=== PATIENT | female | born 1970 | race Caucasian/White ===

== ENCOUNTER → 2019-08-11 | Outpatient (CLI) | payer BC ==
--- NOTE | 2019-08-11 13:08 | XR ---
EXAMINATION TYPE: XR knee limited RT DATE OF EXAM: 08/11/2019 CLINICAL HISTORY: Increasing right knee pain. TECHNIQUE: Frontal and lateral views of the right knee are obtained. COMPARISON: None. FINDINGS: There is no acute fracture/dislocation evident in right knee. Severe patellofemoral compar tment narrowing and spurring. Moderate medial and lateral tibiofemoral compartment narrowing with mod erate to severe spurring. The overlying soft tissue appears unremarkable. IMPRESSION: As above. Findings quite pronounced for patient's chronologic age. Consider orthopedic re ferral.
== END | disposition home or self-care (01) ==
LOC: RADXRYALE 12:53
PROVIDERS: ATTEND Nurse Practitioner Family
DX: M25.861 Other specified joint disorders, right knee (principal); M76.891 Other specified enthesopathies of right lower limb, excluding foot

== ENCOUNTER 2021-09-24 06:39 | Inpatient (IN) | payer BC ==
--- NOTE | 2021-09-24 07:11 | ED ---
General Adult HPI - General Chief complaint: Shortness of Breath Stated complaint: JOCELINE Time Seen by Provider: 09/24/21 07:11 Source: patient, RN notes reviewed, old records reviewed Mode of arrival: EMS Limitations: no limitations - History of Present Illness Initial comments: Patient is a 51-year-old female with no significant past medical history he t akes no medications at home presents emergency Department with a 2 week history of progressively worsening shortness of breath. States it is worse with exertion. Nose last night that it also is associated with lying down. Denies any PND. Endorses chronic lower extremity edema. No worsening edema. States when the shortness of breath is bad she feels a pressure sensation over her chest. No current chest pain. Denies nausea, vomiting, abdominal pain. Denies any lightheadedness. Denies any blurry vision. Denies any fevers, chills, sick contacts, cough. Denies any family medical history of blood clots. Denies any recent long distance travel. Former smoker, no history of COPD or asthma. No other acute complaints at this time. Presents for further evaluation for shortness of breath. - Related Data Home Medications Medication Instructions Recorded Confirmed Acetaminophen [Tylenol Arthritis] 650 mg PO Q8H PRN 09/24/21 09/24/21 Diclofenac Sodium [Voltaren] 75 mg PO BID PRN 09/24/21 09/24/21 Ibuprofen [Motrin] 800 mg PO Q8H PRN 09/24/21 09/24/21 Allergies Allergy/AdvReac Type Severity Reaction Status Date / Time No Known Allergies Allergy Verified 09/24/21 10:29 Review of Systems ROS Statement: Those systems with pertinent positive or pertinent negative responses have been documented in the HPI. Review of Systems: CONST: Denies fever EYES: Denies blurry vision ENT: Denies nasal congestion C/V: Denies Chest pain RESP: Endorses exertional shortness of breath GI: Denies abdominal pain : Denies dysuria SKIN: Denies rash. MSK: Denies joint pain. NEURO: Denies headache ROS Other: All systems not noted in ROS Statement are negative. Past Medical History Past Medical History: No Reported History History of Any Multi-Drug Resistant Organisms: None Reported Additional Past Surgical History / Comment(s): D&C Past Psychological History: No Psychological Hx Reported Smoking Status: Former smoker Past Alcohol Use History: Occasional Past Drug Use History: None Reported - Past Family History Mother Family Medical History: No Reported History Additional Family Medical History / Comment(s): Mother is healthy Father Family Medical History: Hyperlipidemia, Hypertension General Exam - General Exam Comments Initial Comments: General: Appears in no acute distress. Obese. HEAD: Normal with no signs of head trauma. EYES: PERRLA, EOMI, conjunctiva normal, no discharge. ENT: Hearing grossly intact, normal oropharynx. RESPIRATORY: Clear breath sounds bilaterally. No wheezes, rales, or rhonchi. Mild hypoxia at rest, ranging anywhere from 93-97%. No increased work of breathing. C/V: Regular rate and rhythm.. S1 and S2 auscultated. Nonpitting peripheral edema in the lower extremities that is symmetrical. Peripheral pulses 2+ and intact throughout. ABD: Abd is soft, nontender, nondistended EXT: Normal range of motion, no obvious deformity SKIN: No rashes or lesions observed on exposed skin. NEURO: Alert and oriented 4. Limitations: no limitations Course Vital Signs 09/24/21 09/24/21 09/24/21 06:45 07:52 08:00 Temperature 98.1 F Pulse Rate 102 H 96 Respiratory 22 22 22 Rate Blood Pressure 134/83 129/93 O2 Sat by Pulse 94 L 95 Oximetry 09/24/21 11:05 Temperature Pulse Rate 98 Respiratory 20 Rate Blood Pressure 117/91 O2 Sat by Pulse 94 L Oximetry Medical Decision Making - Medical Decision Making Based on the patient's presentation and physical exam, and concern for cardiopulmonary etiology for her current symptoms. Cannot rule out infectious. We'll obtain fluent Covid spots in addition to cardiac workup, as well as d-d sierra for PE. Chest x-ray and screening EKG will also be obtained. Baseline vital signs are relatively within normal limits. We will walk the patient and evaluate the pulse ox following walking. Patient was in agreement this plan. Ambulatory pulse ox shows and the patient gets as low as 87% with activity. At rest, patient remains in the mid 90%'s. EKG shows no signs of acute ischemia. Laboratory studies are remarkable for an elevated d-dimer of 7.71. Mildly elevated LFTs and alk phos. Troponin is elevated slightly to 0.066. BNP is elevated to 3000. Covid and flu are negative. Chest x-ray shows no acute cardiopulmonary process. I discussed the findings with the patient. Vital signs remained stable and wnl at rest at this time. Recommended we obtain a CT to evaluate for pulmonary embolism. She was in agreement this plan. PE revealed bilateral PEs and findings possible for right ventricular strain and pulmonary artery hypertension. Patient was given an aspirin for her elevated troponin. I updated the patient. She started on a high intensity heparin drip. This week, EKOS coverage for PE is vascular, and therefore I spoke with Dr. Cox who was in agreement with the plan. Will evaluate the patient for EKOS. I also consulted cardiology due to the elevated troponin and BNP. We'll continue to trend troponins. I spoke with the admitting team, Dr. Castro who accepted the patient was in agreement this plan. Echo was ordered stat to evaluate for right heart strain. We will also obtain ultrasounds of bilateral lower extremities to evaluate for DVT. Patient will be admitted to telemetry bed to cardiac stepdown. The patient was in agreement this plan. - Lab Data Result diagrams: 09/24/21 13:14 09/24/21 13:14 Lab Results 09/24/21 09/24/21 09/24/21 Range/Units 07:32 07:32 07:32 WBC 9.9 (3.8-10.6) k/uL RBC 4.94 (3.80-5.40) m/uL Hgb 14.7 (11.4-16.0) gm/dL Hct 46.0 (34.0-46.0) % MCV 93.3 (80.0-100.0) fL MCH 29.9 (25.0-35.0) pg MCHC 32.0 (31.0-37.0) g/dL RDW 13.4 (11.5-15.5) % Plt Count 194 (150-450) k/uL MPV 10.6 Neutrophils % 69 % Lymphocytes % 23 % Monocytes % 5 % Eosinophils % 1 % Basophils % 1 % Neutrophils # 6.8 (1.3-7.7) k/uL Lymphocytes # 2.2 (1.0-4.8) k/uL Monocytes # 0.5 (0-1.0) k/uL Eosinophils # 0.1 (0-0.7) k/uL Basophils # 0.1 (0-0.2) k/uL PT 11.0 (9.0-12.0) sec INR 1.0 (<1.2) APTT 23.8 (22.0-30.0) sec D-Dimer 7.71 H (<0.60) mg/L FEU Sodium 139 (137-145) mmol/L Potassium 4.5 (3.5-5.1) mmol/L Chloride 108 H (98-107) mmol/L Carbon Dioxide 20 L (22-30) mmol/L Anion Gap 11 mmol/L BUN 19 H (7-17) mg/dL Creatinine 0.76 (0.52-1.04) mg/dL Est GFR (CKD-EPI)AfAm >90 (>60 ml/min/1.73 sqM) Est GFR (CKD-EPI)NonAf >90 (>60 ml/min/1.73 sqM) Glucose 154 H (74-99) mg/dL Calcium 9.2 (8.4-10.2) mg/dL Magnesium 1.9 (1.6-2.3) mg/dL Total Bilirubin 0.4 (0.2-1.3) mg/dL AST 100 H (14-36) U/L ALT 80 H (4-34) U/L Alkaline Phosphatase 185 H (38-126) U/L Troponin I (0.000-0.034) ng/mL NT-Pro-B Natriuret Pep pg/mL Total Protein 7.4 (6.3-8.2) g/dL Albumin 4.1 (3.5-5.0) g/dL HCG, Qual Not Detected Coronavirus (PCR) (Not Detectd) Influenza Type A RNA (Not Detectd) Influenza Type B (PCR) (Not Detectd) 09/24/21 09/24/21 09/24/21 Range/Units 07:32 07:32 07:32 WBC (3.8-10.6) k/uL RBC (3.80-5.40) m/uL Hgb (11.4-16.0) gm/dL Hct (34.0-46.0) % MCV (80.0-100.0) fL MCH (25.0-35.0) pg MCHC (31.0-37.0) g/dL RDW (11.5-15.5) % Plt Count (150-450) k/uL MPV Neutrophils % % Lymphocytes % % Monocytes % % Eosinophils % % Basophils % % Neutrophils # (1.3-7.7) k/uL Lymphocytes # (1.0-4.8) k/uL Monocytes # (0-1.0) k/uL Eosinophils # (0-0.7) k/uL Basophils # (0-0.2) k/uL PT (9.0-12.0) sec INR (<1.2) APTT (22.0-30.0) sec D-Dimer (<0.60) mg/L FEU Sodium (137-145) mmol/L Potassium (3.5-5.1) mmol/L Chloride (98-107) mmol/L Carbon Dioxide (22-30) mmol/L Anion Gap mmol/L BUN (7-17) mg/dL Creatinine (0.52-1.04) mg/dL Est GFR (CKD-EPI)AfAm (>60 ml/min/1.73 sqM) Est GFR (CKD-EPI)NonAf (>60 ml/min/1.73 sqM) Glucose (74-99) mg/dL Calcium (8.4-10.2) mg/dL Magnesium (1.6-2.3) mg/dL Total Bilirubin (0.2-1.3) mg/dL AST (14-36) U/L ALT (4-34) U/L Alkaline Phosphatase (38-126) U/L Troponin I 0.066 H* (0.000-0.034) ng/mL NT-Pro-B Natriuret Pep 3040 pg/mL Total Protein (6.3-8.2) g/dL Albumin (3.5-5.0) g/dL HCG, Qual Coronavirus (PCR) (Not Detectd) Influenza Type A RNA Not Detected (Not Detectd) Influenza Type B (PCR) Not Detected (Not Detectd) 09/24/21 Range/Units 07:32 WBC (3.8-10.6) k/uL RBC (3.80-5.40) m/uL Hgb (11.4-16.0) gm/dL Hct (34.0-46.0) % MCV (80.0-100.0) fL MCH (25.0-35.0) pg MCHC (31.0-37.0) g/dL RDW (11.5-15.5) % Plt Count (150-450) k/uL MPV Neutrophils % % Lymphocytes % % Monocytes % % Eosinophils % % Basophils % % Neutrophils # (1.3-7.7) k/uL Lymphocytes # (1.0-4.8) k/uL Monocytes # (0-1.0) k/uL Eosinophils # (0-0.7) k/uL Basophils # (0-0.2) k/uL PT (9.0-12.0) sec INR (<1.2) APTT (22.0-30.0) sec D-Dimer (<0.60) mg/L FEU Sodium (137-145) mmol/L Potassium (3.5-5.1) mmol/L Chloride (98-107) mmol/L Carbon Dioxide (22-30) mmol/L Anion Gap mmol/L BUN (7-17) mg/dL Creatinine (0.52-1.04) mg/dL Est GFR (CKD-EPI)AfAm (>60 ml/min/1.73 sqM) Est GFR (CKD-EPI)NonAf (>60 ml/min/1.73 sqM) Glucose (74-99) mg/dL Calcium (8.4-10.2) mg/dL Magnesium (1.6-2.3) mg/dL Total Bilirubin (0.2-1.3) mg/dL AST (14-36) U/L ALT (4-34) U/L Alkaline Phosphatase (38-126) U/L Troponin I (0.000-0.034) ng/mL NT-Pro-B Natriuret Pep pg/mL Total Protein (6.3-8.2) g/dL Albumin (3.5-5.0) g/dL HCG, Qual Coronavirus (PCR) Not Detected (Not Detectd) Influenza Type A RNA (Not Detectd) Influenza Type B (PCR) (Not Detectd) - EKG Data -: EKG Interpreted by Me EKG Comments: 12-lead Electrocardiogram Interpretation Note EKG was reviewed and interpreted by myself. 12-lead ECG performed at 0654 is interpreted by me as revealing normal sinus rhythm at a rate of 100 beats per minute. [place] is normal. MI interval is 184 ms, QRS duration is 102 ms, QTc is 426 seconds.. There were no ST or T wave abnormalities to suggest myocardial ischemia or injury. R wave progression across the precordium was satisfactory. By my interpretation this EKG is non-diagnostic for acute ischemia. Critical Care Time Critical Care Time: Yes Total Critical Care Time: 35 Critical Care Time: Upon my evaluation, this patient had a high probability of imminent or life- threatening deterioration due to heparin initiation for bilateral PEs, concern for right heart strain, which required my direct attention, intervention, and personal management. I have personally provided 35 minutes of critical care time exclusive of time spent on separately billable procedures. Time includes review of laboratory data, radiology results, discussion with consultants, and monitoring for potential decompensation. Interventions were performed as documented in my note. Disposition Clinical Impression: Bilateral pulmonary embolism, Elevated troponin, Elevated brain natriuretic peptide (BNP) level, Exertional dyspnea Disposition: ADMITTED IP TO THIS HOSP Condition: Serious Time of Disposition: 10:00
[2021-09-24 08:07] LABS: Basophils # (A) 0.1 k/uL (0-0.2); Basophils % (A) 1 %; Eosinophils # (A) 0.1 k/uL (0-0.7); Eosinophils % (A) 1 %; HGB 14.7 gm/dL (11.4-16.0); Lymphocytes # (A) 2.2 k/uL (1.0-4.8); Lymphocytes % (A) 23 %; MCH 29.9 pg (25.0-35.0); MCV 93.3 fL (80.0-100.0); Mean Platelet Volume 10.6; Monocytes # (A) 0.5 k/uL (0-1.0); Monocytes % (A) 5 %; Neutrophils # (A) 6.8 k/uL (1.3-7.7); Neutrophils % (A) 69 %; Platelet Count 194 k/uL (150-450); RBC 4.94 m/uL (3.80-5.40); RDW 13.4 % (11.5-15.5); WBC 9.9 k/uL (3.8-10.6)
--- NOTE | 2021-09-24 08:14 | XR ---
EXAMINATION TYPE: XR chest 2V DATE OF EXAM: 09/24/2021 COMPARISON: NONE HISTORY: Chest pain TECHNIQUE: Frontal and lateral views of the chest are obtained. FINDINGS: There is no focal air space opacity. No evidence for pneumothorax. No pleural effusion. The cardiac silhouette size is within normal limits. The osseous structures are grossly intact. IMPRESSION: 1. No acute cardiopulmonary process.
[2021-09-24 08:20] LABS: HCG,Qualitative Serum Not Detected
[2021-09-24 08:22] LABS: Potassium 4.5 mmol/L (3.5-5.1)
[2021-09-24 08:23] LABS: ALT 80 U/L (4-34); AST 100 U/L (14-36); African American GFR (CKD) >90 (>60 ml/min/1.73 sqM); Albumin 4.1 g/dL (3.5-5.0); Alkaline Phosphatase 185 U/L (38-126); Anion Gap 11 mmol/L; Blood Urea Nitrogen 19 mg/dL (7-17); Calcium 9.2 mg/dL (8.4-10.2); Carbon Dioxide 20 mmol/L (22-30); Chloride 108 mmol/L (98-107); Glucose 154 mg/dL (74-99); Magnesium 1.9 mg/dL (1.6-2.3); Non-African American GFR(CKD) >90 (>60 ml/min/1.73 sqM); Sodium 139 mmol/L (137-145); Total Bilirubin 0.4 mg/dL (0.2-1.3); Total Protein 7.4 g/dL (6.3-8.2)
[2021-09-24 08:25] LABS: Partial Thromboplastin Time 23.8 sec (22.0-30.0)
[2021-09-24] MEDS ORDERED: ASPIRIN 81 MG PO STA (09:33)
[2021-09-24] MEDS ORDERED: HEPARIN SODIUM 1,000 UN/ML (10ML VL) IV ONE (09:37)
[2021-09-24] MEDS ORDERED: HEPARIN SODIUM 1,000 UN/ML (10ML VL) IV PRN (09:37)
--- NOTE | 2021-09-24 09:44 | CT ---
EXAMINATION TYPE: CT chest angio for PE DATE OF EXAM: 09/24/2021 COMPARISON: Chest x-ray 09/24/2021 HISTORY: Elevated d-dimer, difficulty breathing CT DLP: 888.5 mGycm Automated exposure control for dose reduction was used. CONTRAST: CT Chest for pulmonary embolism performed with with IV Contrast, patient injected with 100 mL of Isov ue 370. 3-dimensional reconstructions were performed on an alternate workstation and reviewed. FINDINGS: LUNGS: The lungs are grossly clear, there is no concerning parenchymal mass or nodule identified. T here is no pleural effusion or pneumothorax seen. The tracheobronchial tree is patent. MEDIASTINUM: There is satisfactory enhancement of the pulmonary artery and its branches, there is danni ateral filling defect present in the left and right pulmonary arteries with extension into the segmen aniya branches. There are no greater than 1 cm hilar or mediastinal lymph nodes. No pericardial effu juanita is seen. Pulmonary artery is prominent. AORTA: No additional significant abnormality is seen. OTHER: No definite reflux of contrast into the hepatic veins, suspect there may be some mild right v entricular strain, some slight interventricular septal bowing is suspected, axial image 81. The liver shows low-attenuation suggesting hepatic steatosis. IMPRESSION: Bilateral pulmonary embolus, findings suggestive of some right ventricular strain and pulmonary arter y hypertension. Report relayed to the referring clinician at the time of interpretation of the exam.
[2021-09-24] MEDS ORDERED: HEPARIN SOD,PORK IN 0.45% NACL 25,000 UNIT in 0.45% NACL 1 250ML.BAG IV SCH ×2 (09:45→14:00)
[2021-09-24] MEDS ORDERED: NALOXONE 0.4 MG/ML 1 ML VIAL IV PRN (09:58)
[2021-09-24] MEDS ORDERED: ONDANSETRON 4 MG/2 ML VIAL IVP PRN (09:58)
--- NOTE | 2021-09-24 10:44 | US ---
EXAMINATION TYPE: US venous doppler duplex LE DATE OF EXAM: 09/24/2021 10:29 AM COMPARISON: NONE CLINICAL HISTORY: elevated d-dimer, evaluate for dvt. Elevated d-dimer. CT showed bilat PE SIDE PERFORMED: Bilateral TECHNIQUE: The lower extremity deep venous system is examined utilizing real time linear array sonog catrachita with graded compression, doppler sonography and color-flow sonography. Limited due to pt being morbidly obese VESSELS IMAGED: Common Femoral Vein Deep Femoral Vein Greater Saphenous Vein * Femoral Vein Popliteal Vein Small Saphenous Vein * (* superficial vessels) Right Leg: Could not completely compress mid and distal femoral vein on right leg. There was some co corin flow and Doppler in distal femoral vein. The popliteal vein did not compress, but there was some color flow and Doppler in mid and distal pop vein. Prox popliteal vein did have good color flow. Calf veins not visualized. Left Leg: Negative for DVT. Calf veins not visualized. IMPRESSION: 1. Suspect nonocclusive DVT right lower extremity. 2. Limited visualization of the left-sided calf veins otherwise no left-sided DVT present.
--- NOTE | 2021-09-24 11:02 | P.GSCN ---
History of Present Illness Consult date: 09/24/21 Reason for Consult: Bilateral pulmonary embolism, possible right heart strain Requesting physician: Crescencio Castro History of present illness: This a pleasant 51-year-old female who presented to the emergency department with complaints of shortness of breath. She states she's had shortness of breath that has increased over last 2 weeks duration. She states last night was difficult for her to sleep, she hasn't dyspnea with exertion as well as mild pressure in her chest otherwise denies any chest pain. She denies any nausea, vomiting, fevers or chills. She denies any previous history of DVT or pulmonary embolism. She denies any history of clotting disorder, COVID-19 infection, or family history of blood clots. She is a former smoker, 10 years ago. She does admit to recently traveled to [place] which was a 4-1/[address]. On admission she was noted to have elevated d-dimer and troponins. CT angiogram of the chest was completed showing bilateral pulmonary embolus, findings suggestive of some right ventricular strain and pulmonary artery hypertension. Echocardiogram was ordered and is currently pending. Venous duplex was ordered reporting suspected nonocclusive DVT in the right lower extremity, limited visualization of left-sided calf veins otherwise to left sided DVT present. Patient denies any recent increase in lower sternum any swelling or pain. She states she is still having some shortness of breath. BP 129/93, heart rate 96 respiratory rate 22 nonlabored, Oxygen level is 9495% on room air. Review of Systems A 14 point review systems was completed all pertinent positives and negatives as stated in the HPI. Past Medical History Past Medical History: GERD/Reflux, Osteoarthritis (OA), Pneumonia Additional Past Medical History / Comment(s): Pneumonia twice, UTI once, newly diagnosed with arthritis bilateral knees, pt had covid 01/2021 History of Any Multi-Drug Resistant Organisms: None Reported Additional Past Surgical History / Comment(s): D&C x2 Past Anesthesia/Blood Transfusion Reactions: No Reported Reaction Smoking Status: Former smoker - Past Family History Mother Family Medical History: No Reported History Additional Family Medical History / Comment(s): Mother is healthy Father Family Medical History: Hyperlipidemia, Hypertension Medications and Allergies Home Medications Medication Instructions Recorded Confirmed Type Acetaminophen [Tylenol Arthritis] 650 mg PO Q8H PRN 09/24/21 09/24/21 History Diclofenac Sodium [Voltaren] 75 mg PO BID PRN 09/24/21 09/24/21 History Ibuprofen [Motrin] 800 mg PO Q8H PRN 09/24/21 09/24/21 History Allergies Allergy/AdvReac Type Severity Reaction Status Date / Time No Known Allergies Allergy Verified 09/24/21 10:29 Surgical - Exam Vital Signs Temp Pulse Resp BP Pulse Ox 98.1 F 102 H 22 134/83 94 L 09/24/21 06:45 09/24/21 06:45 09/24/21 06:45 09/24/21 06:45 09/24/21 06:45 General appearance: The patient is alert, oriented, appears in no acute distress. Morbidly obese. HET: Head is normocephalic and atraumatic. Pupils are equal and reactive. Neck: Supple without lymphadenopathy. Trachea midline. Heart: S1 S2. Regular rate and rhythm. Lungs: Clear to auscultation bilaterally. Abdomen: Soft, nontender, nondistended. Extremities: Normal skin color and turgor. No cyanosis, rash, ulceration, clubbing, positive nonpitting lower extremity edema. Radial and pedal pulses are 2/4 bilaterally. Neurological: No focal deficits. Strength and sensation are grossly intact. Results - Labs 09/24/21 07:32 09/24/21 07:32 Abnormal Lab Results - Last 24 Hours (Table) 09/24/21 09/24/21 09/24/21 Range/Units 07:32 07:32 07:32 D-Dimer 7.71 H (<0.60) mg/L FEU Chloride 108 H (98-107) mmol/L Carbon Dioxide 20 L (22-30) mmol/L BUN 19 H (7-17) mg/dL Glucose 154 H (74-99) mg/dL AST 100 H (14-36) U/L ALT 80 H (4-34) U/L Alkaline Phosphatase 185 H (38-126) U/L Troponin I 0.066 H* (0.000-0.034) ng/mL Diabetes panel 09/24/21 Range/Units 07:32 Sodium 139 (137-145) mmol/L Potassium 4.5 (3.5-5.1) mmol/L Chloride 108 H (98-107) mmol/L Carbon Dioxide 20 L (22-30) mmol/L BUN 19 H (7-17) mg/dL Creatinine 0.76 (0.52-1.04) mg/dL Glucose 154 H (74-99) mg/dL Calcium 9.2 (8.4-10.2) mg/dL AST 100 H (14-36) U/L ALT 80 H (4-34) U/L Alkaline Phosphatase 185 H (38-126) U/L Total Protein 7.4 (6.3-8.2) g/dL Albumin 4.1 (3.5-5.0) g/dL Calcium panel 09/24/21 Range/Units 07:32 Calcium 9.2 (8.4-10.2) mg/dL Albumin 4.1 (3.5-5.0) g/dL Pituitary panel 09/24/21 Range/Units 07:32 Sodium 139 (137-145) mmol/L Potassium 4.5 (3.5-5.1) mmol/L Chloride 108 H (98-107) mmol/L Carbon Dioxide 20 L (22-30) mmol/L BUN 19 H (7-17) mg/dL Creatinine 0.76 (0.52-1.04) mg/dL Glucose 154 H (74-99) mg/dL Calcium 9.2 (8.4-10.2) mg/dL Adrenal panel 09/24/21 Range/Units 07:32 Sodium 139 (137-145) mmol/L Potassium 4.5 (3.5-5.1) mmol/L Chloride 108 H (98-107) mmol/L Carbon Dioxide 20 L (22-30) mmol/L BUN 19 H (7-17) mg/dL Creatinine 0.76 (0.52-1.04) mg/dL Glucose 154 H (74-99) mg/dL Calcium 9.2 (8.4-10.2) mg/dL Total Bilirubin 0.4 (0.2-1.3) mg/dL AST 100 H (14-36) U/L ALT 80 H (4-34) U/L Alkaline Phosphatase 185 H (38-126) U/L Total Protein 7.4 (6.3-8.2) g/dL Albumin 4.1 (3.5-5.0) g/dL - Imaging Comments: Venous duplex reviewed of bilateral lower extremities, as stated in the HPI. CT scan - chest: report reviewed (As stated in the HPI) Assessment and Plan Assessment: 1. Bilateral pulmonary embolism with elevated troponin 2. Right lower extremity deep vein thrombosis 3. Shortness of breath 4. Morbid obesity Plan: 1. Continue heparin drip as ordered 2. Keep nothing by mouth 3. Await echocardiogram results to evaluate for right heart strain 4. Plan for tentative EKOS procedure this afternoon 5. Compression stockings bilateral lower extremities Thank you for this consultation, we will continue to follow. The impression and plan of care has been dictated as directed. Dr. Galindo I performed a history and examination of this patient, discussed the same with the dictator. I agree with the dictator's note ,documented as a scribe. Any additional findings or plans will be noted.
--- NOTE | 2021-09-24 11:57 | CA ---
Transthoracic Echo Report Name: Yazmin Chavez Age: 51 Gender: F : 1970 Exam Date: 09/24/2021 10:07 Exam Location: [facility] Ht (in): 62 Wt (lb): 370 Ordering Physician: Crescencio Castro MD Attending/Referring Phys: Manager [employer] Josi Manzo RDCS Procedure CPT: Indications: Bilateral PE, eval for rt heart strain Cardiac Hx: Mobid Obesity Technical Quality: Very technically difficult study Contrast 1: Total Dose (mL): Contrast 2: Lumason Total Dose (mL): 5 MEASUREMENTS (Male / Female) Normal Values 2D ECHO LV Diastolic Diameter PLAX 4.0 cm 4.2 - 5.9 / 3.9 - 5.3 cm LV Systolic Diameter PLAX 3.7 cm IVS Diastolic Thickness 1.4 cm 0.6 - 1.0 / 0.6 - 0.9 cm LVPW Diastolic Thickness 1.6 cm 0.6 - 1.0 / 0.6 - 0.9 cm LV Relative Wall Thickness 0.8 RV Internal Dim ED PLAX 3.5 cm LA Systolic Diameter LX 3.9 cm 3.0 - 4.0 / 2.7 - 3.8 cm RV Diastolic Length 4.2 cm 7.1 - 7.9 cm M-MODE Aortic Root Diameter MM 3.2 cm LA Systolic Diameter MM 3.6 cm LA Ao Ratio MM 1.1 MV E Point Septal Separation 1.0 cm AV Cusp Separation MM 2.3 cm DOPPLER TR Peak Velocity 253.4 cm/s TR Peak Gradient 25.7 mmHg Right Ventricular Systolic Press 30.7 mmHg FINDINGS Left Ventricle Left ventricular ejection fraction is estimated at 55%. Right Ventricle Moderate right ventricular dilatation. Mild right ventricular hypokinesis. Unable to perform TAPSE secondary to body habitus. Right Atrium Right atrium not well visualized. Left Atrium Left atrium not well visualized. Mitral Valve Mitral valve not well visualized. Aortic Valve Aortic valve not well visualized. Tricuspid Valve Tricuspid valve not well visualized. Pulmonic Valve Pulmonic valve not well visualized. Pericardium Echo free space anterior to the right ventricle likely represents a fat pad. Aorta Aortic root and proximal ascending aorta not well visualized. CONCLUSIONS Left ventricular ejection fraction 55% Moderate right ventricular dilation with mild right ventricular hypokinesis No significant tricuspid regurgitation. No significant pulmonary hypertension noted however may be underestimated secondary to inadequate jet. No pericardial effusion Previewed by: Dr. Herberth Dixon DO (Electronically Signed) Final Date: 24 September 2021 11:56
[2021-09-24 13:38] LABS: Basophils # (A) 0.1 k/uL (0-0.2); Basophils % (A) 1 %; Eosinophils # (A) 0.1 k/uL (0-0.7); Eosinophils % (A) 1 %; HCT 45.7 % (34.0-46.0); HGB 14.8 gm/dL (11.4-16.0); Lymphocytes # (A) 3.2 k/uL (1.0-4.8); Lymphocytes % (A) 34 %; MCH 30.5 pg (25.0-35.0); MCHC 32.3 g/dL (31.0-37.0); MCV 94.3 fL (80.0-100.0); Mean Platelet Volume 10.3; Monocytes # (A) 0.5 k/uL (0-1.0); Monocytes % (A) 5 %; Neutrophils # (A) 5.6 k/uL (1.3-7.7); Neutrophils % (A) 58 %; Platelet Count 188 k/uL (150-450); RBC 4.84 m/uL (3.80-5.40); RDW 13.8 % (11.5-15.5); WBC 9.6 k/uL (3.8-10.6)
[2021-09-24] MEDS ORDERED: SODIUM CHLORIDE 0.9% 1,000 ML IV SCH ×4 (14:00)
[2021-09-24] MEDS ORDERED: ALTEPLASE 10 MG in SODIUM CHLORIDE 0.9% 90 ML IV ONE ×4 (14:00)
[2021-09-24 14:17] LABS: Partial Thromboplastin Time 87.7 sec (22.0-30.0); Prothrombin Time 11.3 sec (9.0-12.0)
[2021-09-24 14:28] LABS: African American GFR (CKD) >90 (>60 ml/min/1.73 sqM); Anion Gap 11 mmol/L; Blood Urea Nitrogen 19 mg/dL (7-17); Calcium 9.1 mg/dL (8.4-10.2); Carbon Dioxide 23 mmol/L (22-30); Chloride 106 mmol/L (98-107); Glucose 114 mg/dL (74-99); Non-African American GFR(CKD) >90 (>60 ml/min/1.73 sqM); Sodium 140 mmol/L (137-145)
[2021-09-24 14:49] LABS: Potassium 4.4 mmol/L (3.5-5.1)
[2021-09-24] MEDS ORDERED: ALTEPLASE 2 MG VIAL (CATHFLO) IV STA ×2 (14:57→14:58)
[2021-09-24] MEDS ORDERED: LIDOCAINE 1% PF 10 MG/ML (5 ML AMP) SQ ONE (15:01)
[2021-09-24] MEDS ORDERED: fentaNYL (PF) 50 MCG/ML 2 ML AMP IV ONE (15:05)
[2021-09-24] MEDS ORDERED: MIDAZOLAM 2 MG/2 ML VIAL IV ONE (15:05)
[2021-09-24] MEDS ORDERED: IV FLUID CONTINUATION 1,000 ML IV ONE (15:05)
--- NOTE | 2021-09-24 15:45 | P.OP ---
Date of Procedure: 09/24/21 Description of Procedure: Preoperative diagnosis: Submassive bilateral pulmonary emboli Postoperative diagnosis: Same Procedure: #1 ultrasound-guided left common femoral vein access of central venous catheters 2 #2 bilateral selective pulmonary angiogram #3 Initiation of pulmonary pharmacal mechanical thrombolysis with EKOS #4 Moderate conscious sedation x [34 minutes] Surgeon: Dianna Galindo D.O. EBL: Less than 10 mL IV fluids: See records Urine output: See records Drains: None Complications: None immediately apparent Condition: Stable to ICU Operative indication and findings: [Patient is a 51-year-old female with essentially sudden onset of shortness of breath worsened with exertion. She was found to have bilateral ulnar artery emboli with evidence of right heart strain, moderate right ventricular dilation and troponin leak. Given these findings it was discussed going forward with a and EKOS thrombolysis. Risks and benefits were discussed. She seemingly understood and was willing to proceed. Prior to the procedure, the right common femoral vein was identified, it was very difficult to visualize and was deepened to the artery at the portions visualized therefore the left common femoral vein was chosen as it was patent and compressible] Procedure in detail: [The patient was taken to the radiology suite and placed in supine position. Bilateral groins are prepped and draped in usual sterile fashion. A preprocedure timeout was performed, all parties were in agreement. The left common femoral vein was identified and found to be compressible without any evidence of visible thrombus. The skin overlying was anesthetized 1% lidocaine plain. A multipurpose needle was used and the vein was accessed and a wire was placed. This was done again through a separate access site. 2, 6- Yi sheaths were placed. Using catheters and wires the right and left pulmonary arteries were accessed. Pulmonic angiograms were performed confirming positioning. An EKOS ultrasonic pharmacomechanical infusion catheter was placed and confirmed appropriate positioning within the pulmonary arteries. 2 mg of TPA was placed in each catheter. The catheters were hooked up to appropriate fluid infusions for the [place] [facility] protocol for submassive pulmonary emboli. The sheaths were sutured in place. Dressing was placed. The patient was transferred back to ICU in stable condition having tolerated the procedure well.
[2021-09-24 16:10] LABS: Glucose,Whole Blood 117 mg/dL (70-110)
[2021-09-24] MEDS: SODIUM CHLORIDE 0.9% 1,000 ML IV SCH (16:25)
[2021-09-24] MEDS: MORPHINE SULFATE 2 MG/ML SYRINGE IVP PRN ×2 (17:39→21:37)
[2021-09-24 19:34] LABS: Basophils # (A) 0.1 k/uL (0-0.2); Basophils % (A) 1 %; Eosinophils # (A) 0.2 k/uL (0-0.7); Eosinophils % (A) 2 %; HCT 42.4 % (34.0-46.0); HGB 13.3 gm/dL (11.4-16.0); Lymphocytes # (A) 3.5 k/uL (1.0-4.8); Lymphocytes % (A) 32 %; MCH 29.2 pg (25.0-35.0); MCHC 31.4 g/dL (31.0-37.0); MCV 93.1 fL (80.0-100.0); Mean Platelet Volume 11.3; Monocytes # (A) 0.5 k/uL (0-1.0); Monocytes % (A) 5 %; Neutrophils # (A) 6.5 k/uL (1.3-7.7); Neutrophils % (A) 60 %; Platelet Count 187 k/uL (150-450); RBC 4.55 m/uL (3.80-5.40); RDW 13.5 % (11.5-15.5); WBC 10.8 k/uL (3.8-10.6)
[2021-09-24 20:10] LABS: Partial Thromboplastin Time 23.8 sec (22.0-30.0)
--- NOTE | 2021-09-24 22:30 | P.HPIM ---
History of Present Illness H&P Date: 09/24/21 Chief Complaint: Shortness of breath Patient is a 51-year-old female with a known history of osteoarthritis, GERD, morbid obesity and prior history of smoking presents to ER with the complaints of worsening shortness of breath for the past 2 weeks. Patient has been having exertional dyspnea and also shortness of breath when lying down. Patient also felt tightness and pressure like sensation with inspiration. Denied any complaints of fever or chills. No nausea or vomiting. No abdominal pain or vomiting. No diarrhea. Denied any recent illnesses. No recent travel. Patient felt dizzy and lightheaded. Patient did have COVID-19 infection in January 2021. For the last couple of months patient has not been moving well much due to bilateral knee pain and patient does have chronic lower extremity swelling. Denied any leg pain. Chest x-ray showed no acute cardiopulmonary process. CT angiogram of the chest showed bilateral pulmonary embolus findings suggestive of right ventricular strain and pulmonary artery hypertension. EKG showed sinus tachycardia. On admission patient was tachycardic and tachypneic and pulse ox 94% on room air. Blood pressure 134/83. Laboratory test showed WBC 9.9 hemoglobin 14.7 platelets 194 D-dimer 7.71 and Sodium 139 potassium 4.5 chloride 108 bicarb is 20 BUN 19 and creatinine 0.76 and blood sugar is 154 AST 100 ALT 80 and alk phos 185 and troponin 0.066 and 0.056 and 0.051 proBNP 3040 Coronavirus PCR not detected. Review of Systems Constitutional: Patient denies any fever or chills . Generalized weakness. Abdomen: Patient denied any nausea or vomiting or abd. pain Cardiovascular: Patient denies any chest pain. Patient does have chest pressure and short of breath. No palpitations. Respiratory: patient denied any cough is from production. Patient does have shortness of breath Neurologic: Patient denied any numbness or tingling headache. Musculoskeletal: Patient denies any complaints of joint swelling or deformity. Skin: Negative Psychiatric: Negative Endocrine: No heat or cold intolerance. No recent weight gain. Genitourinary: No dysuria or hematuria. All other 14 point ROS negative except the above Past Medical History Past Medical History: GERD/Reflux, Osteoarthritis (OA), Pneumonia Additional Past Medical History / Comment(s): Pneumonia twice, UTI once, newly diagnosed with arthritis bilateral knees, pt had covid 01/2021 History of Any Multi-Drug Resistant Organisms: None Reported Additional Past Surgical History / Comment(s): D&C x2 Past Anesthesia/Blood Transfusion Reactions: No Reported Reaction Smoking Status: Former smoker - Past Family History Mother Family Medical History: No Reported History Additional Family Medical History / Comment(s): Mother is healthy Father Family Medical History: Hyperlipidemia, Hypertension Medications and Allergies Home Medications Medication Instructions Recorded Confirmed Type Acetaminophen [Tylenol Arthritis] 650 mg PO Q8H PRN 09/24/21 09/24/21 History Diclofenac Sodium [Voltaren] 75 mg PO BID PRN 09/24/21 09/24/21 History Ibuprofen [Motrin] 800 mg PO Q8H PRN 09/24/21 09/24/21 History Allergies Allergy/AdvReac Type Severity Reaction Status Date / Time No Known Allergies Allergy Verified 09/24/21 10:29 Physical Exam Vitals: Vital Signs Temp Pulse Resp BP Pulse Ox 09/24/21 11:05 98 20 117/91 94 L 09/24/21 08:00 96 22 129/93 95 09/24/21 07:52 22 09/24/21 06:45 98.1 F 102 H 22 134/83 94 L Intake and Output 09/23/21 09/24/21 09/24/21 22:59 06:59 14:59 Other: Weight 167.829 kg 167.829 kg PHYSICAL EXAMINATION: Patient is lying in the bed comfortably, no acute distress, awake alert and oriented.. Morbidly obese. HEENT: Normocephalic. Neck is supple. Pupils reactive. Nostrils clear. Oral cavity is moist. Neck reveals no JVD, carotid bruits, or thyromegaly. CHEST EXAMINATION: Trachea is central. Symmetrical expansion. Lung andres clear to auscultation and percussion. CARDIAC: Normal S1, S2 with no gallops. No murmurs ABDOMEN: Soft. Bowel sounds present. Nontender. No organomegaly. No abdominal bruits. Extremities: Bilateral lower extremity swelling 2+. No clubbing or cyanosis Neurologically awake, alert, oriented x3 with well-coordinated movements. No focal deficits noted Skin: No rash or skin lesions. Psychiatric: Coperative. Nonsuicidal, anxious. Musculoskeletal: No joint swelling or deformity. Normal range of motion. Results CBC & Chem 7: 09/24/21 19:25 09/24/21 13:14 Labs: Abnormal Lab Results - Last 24 Hours (Table) 09/24/21 09/24/21 09/24/21 Range/Units 07:32 07:32 07:32 D-Dimer 7.71 H (<0.60) mg/L FEU Chloride 108 H (98-107) mmol/L Carbon Dioxide 20 L (22-30) mmol/L BUN 19 H (7-17) mg/dL Glucose 154 H (74-99) mg/dL AST 100 H (14-36) U/L ALT 80 H (4-34) U/L Alkaline Phosphatase 185 H (38-126) U/L Troponin I 0.066 H* (0.000-0.034) ng/mL Thrombosis Risk Factor Assmnt - DVT/VTE Prophylaxis DVT/VTE Prophylaxis: Pharmacologic Prophylaxis ordered - Choose All That Apply Any of the Below Risk Factors Present?: Yes Each Factor Represents 1 point: Age 41-60 years, Obesity (BMI >25) Other Risk Factors: Yes Each Risk Factor Represents 3 Points: History of DVT/PE Other congenital or acquired thrombophilia - If yes, enter type in comment: No Thrombosis Risk Factor Assessment Total Risk Factor Score: 5 Thrombosis Risk Factor Assessment Level: High Risk Assessment and Plan Assessment: Acute bilateral pulmonary embolism with evidence of right ventricular strain and pulmonary artery hypertension as per CTA chest. Etiology likely due to sedentary lifestyle. Right lower extremity DVT Mild transaminitis Elevated troponin level likely due to right ventricular strain. History of COVID-19 infection in January 2021 GERD Osteoarthritis of the bilateral knees Previous history of smoking Morbid obesity with BMI 51.6 DVT prophylaxis patient is already heparin drip Plan: Patient will be continued heparin drip and oxygen supplementation as needed. 2D echocardiogram was ordered to evaluate for right ventricular strain and vascular surgery was consulted for possible EKOS procedure. Continue with home medications and follow-up closely. Prognosis is guarded. Cardiology was consulted. Time with Patient: Greater than 30
[2021-09-25 01:36] LABS: Basophils # (A) 0.1 k/uL (0-0.2); Basophils % (A) 1 %; Eosinophils # (A) 0.2 k/uL (0-0.7); Eosinophils % (A) 2 %; HCT 42.9 % (34.0-46.0); Lymphocytes # (A) 2.7 k/uL (1.0-4.8); Lymphocytes % (A) 29 %; MCH 30.7 pg (25.0-35.0); MCHC 32.6 g/dL (31.0-37.0); Mean Platelet Volume 10.2; Monocytes # (A) 0.4 k/uL (0-1.0); Monocytes % (A) 4 %; Neutrophils % (A) 63 %; Platelet Count 172 k/uL (150-450); RBC 4.56 m/uL (3.80-5.40); RDW 13.8 % (11.5-15.5); WBC 9.5 k/uL (3.8-10.6)
[2021-09-25] MEDS: MORPHINE SULFATE 2 MG/ML SYRINGE IVP PRN ×3 (01:58→10:36)
[2021-09-25 06:28] LABS: Basophils # (A) 0.1 k/uL (0-0.2); Basophils % (A) 1 %; Eosinophils # (A) 0.2 k/uL (0-0.7); Eosinophils % (A) 2 %; HCT 42.4 % (34.0-46.0); HGB 13.8 gm/dL (11.4-16.0); Lymphocytes # (A) 2.5 k/uL (1.0-4.8); Lymphocytes % (A) 29 %; MCH 30.7 pg (25.0-35.0); MCHC 32.6 g/dL (31.0-37.0); MCV 94.4 fL (80.0-100.0); Mean Platelet Volume 11.2; Monocytes # (A) 0.4 k/uL (0-1.0); Monocytes % (A) 4 %; Neutrophils # (A) 5.4 k/uL (1.3-7.7); Neutrophils % (A) 63 %; Platelet Count 145 k/uL (150-450); RBC 4.49 m/uL (3.80-5.40); RDW 13.9 % (11.5-15.5); WBC 8.5 k/uL (3.8-10.6)
[2021-09-25 07:15] LABS: ALT 58 U/L (4-34); AST 45 U/L (14-36); African American GFR (CKD) >90 (>60 ml/min/1.73 sqM); Albumin 3.6 g/dL (3.5-5.0); Alkaline Phosphatase 154 U/L (38-126); Anion Gap 8 mmol/L; Blood Urea Nitrogen 17 mg/dL (7-17); Calcium 8.4 mg/dL (8.4-10.2); Carbon Dioxide 22 mmol/L (22-30); Chloride 107 mmol/L (98-107); Glucose 116 mg/dL (74-99); Non-African American GFR(CKD) >90 (>60 ml/min/1.73 sqM); Potassium 4.2 mmol/L (3.5-5.1); Sodium 137 mmol/L (137-145); Total Bilirubin 0.6 mg/dL (0.2-1.3); Total Protein 6.7 g/dL (6.3-8.2)
--- NOTE | 2021-09-25 09:33 | P.CRDCN ---
History of Present Illness Consult date: 09/25/21 Reason for Consult (text): Elevated troponin History of present illness: The patient is a 51-year-old female who presented to the emergency room with shortness of breath over the last 2 weeks. She developed severe exertional dyspnea as well as shortness of breath while lying down. She also reported chest tightness with deep breathing. Initial evaluation showed the patient was tachycardic and tachypneic with low normal oxygen saturations on arrival. CT of the chest showed bilateral pulmonary emboli with RV strain, therefore she underwent EKOS procedure with Dr. Galindo. DIAGNOSTICS: CTA of the chest reveals bilateral pulmonary emboli Lower extremity venous study negative for DVT Echocardiogram reveals normal LV function at 55% with moderate RV dilation and mild right ventricular hypokinesis EKG shows sinus tachycardia Vital signs: Blood pressure 129/83, pulse 89, SpO2 94 percent on 2 L nasal cannula Lab data: WBC 8.5, hemoglobin 13.8, hematocrit 42.4, platelet 145, sodium 137, potassium 4.2, BUN 70, creatinine 0.75, AST 45, ALT 58, ALP 154, troponin 0.06, 0.05, 0.05 PAST MEDICAL HISTORY: Acid reflux, morbid obesity, former smoker REVIEW OF SYSTEMS: No fever or chills. No cough or expectoration. No diaphoresis. Patient denies headache, dizziness, blurred vision, double vision. Patient denies any stomach discomfort. No nausea, vomiting. No hematochezia. No hematemesis. Denies any black stools or blood in his stools. Denies dysuria or hematuria. No muscle weakness or numbness. No chest pain or dyspnea. No orthopnea. PHYSICAL EXAMINATION: This is a 51-year-old female in no apparent distress at the time of my examination. HEENT: Head is atraumatic, normocephalic. Pupils are equal, round. Sclerae anicteric. Conjunctivae are clear. Mucous membranes of the mouth are moist. Neck is supple. There is no jugular venous distention. No carotid bruit is heard. CHEST EXAMINATION: Lungs are clear to auscultation. No chest wall tenderness is noted on palpation or with deep breathing. HEART EXAMINATION: Heart regular rate and rhythm. S1, S2 heard. No murmurs, gallops or rub. ABDOMEN: Soft, nontender. Bowel sounds are heard. No organomegaly noted. EXTREMITIES: 2+ peripheral pulses with no evidence of peripheral edema and no calf tenderness noted. NEUROLOGIC EXAMINATION: Patient is awake, alert and oriented x3. FINAL ASSESSMENT AND PLAN: Elevated troponins, secondary to pulmonary emboli Bilateral pulmonary emboli, with RV strain Status post EKOS procedure PLAN: Continue anticoagulation per PE protocol Outpatient follow-up with Dr. Duran in 2-3 weeks No further recommendations cardiac standpoint I am dictating on behalf of Dr Nathanael Duran's history/physical and assessment/plan. Past Medical History Past Medical History: GERD/Reflux, Osteoarthritis (OA), Pneumonia Additional Past Medical History / Comment(s): Pneumonia twice, UTI once, newly diagnosed with arthritis bilateral knees, pt had covid 01/2021 History of Any Multi-Drug Resistant Organisms: None Reported Additional Past Surgical History / Comment(s): D&C x2 Past Anesthesia/Blood Transfusion Reactions: No Reported Reaction Smoking Status: Former smoker - Past Family History Mother Family Medical History: No Reported History Additional Family Medical History / Comment(s): Mother is healthy Father Family Medical History: Hyperlipidemia, Hypertension Medications and Allergies Home Medications Medication Instructions Recorded Confirmed Type Acetaminophen [Tylenol Arthritis] 650 mg PO Q8H PRN 09/24/21 09/24/21 History Apixaban [Eliquis Starter Pack 5 - 10 mg PO DIRECTED 30 Days 09/25/21 Rx (for VTE)] #1 each Allergies Allergy/AdvReac Type Severity Reaction Status Date / Time No Known Allergies Allergy Verified 09/24/21 10:29 Physical Exam Vitals: Vital Signs Temp Pulse Pulse Resp BP BP Pulse Ox 09/25/21 07:00 89 24 129/83 90 L 09/25/21 06:45 90 20 128/90 91 L 09/25/21 06:30 94 22 125/89 92 L 09/25/21 06:15 90 23 127/84 91 L 09/25/21 06:00 92 20 121/80 91 L 09/25/21 05:45 96 20 123/84 94 L 09/25/21 05:30 98 22 124/93 93 L 09/25/21 05:15 93 24 141/100 92 L 09/25/21 05:00 92 22 137/97 91 L 09/25/21 04:45 96 21 135/95 90 L 09/25/21 04:30 93 20 135/101 92 L 09/25/21 04:15 95 27 H 126/98 92 L 09/25/21 04:00 98 F 98 23 132/93 93 L 09/25/21 03:45 111 H 20 125/100 91 L 09/25/21 03:30 93 20 134/100 91 L 09/25/21 03:15 96 22 130/95 91 L 09/25/21 03:00 94 24 131/90 91 L 09/25/21 02:45 97 24 125/89 91 L 09/25/21 02:30 97 23 144/97 91 L 09/25/21 02:15 97 32 H 140/93 91 L 09/25/21 02:00 105 H 21 149/90 89 L 09/25/21 01:45 99 31 H 145/99 93 L 09/25/21 01:30 101 H 20 148/102 91 L 09/25/21 01:17 99 20 148/102 90 L 09/25/21 01:00 100 20 124/98 90 L 09/25/21 00:45 101 H 23 128/100 90 L 09/25/21 00:30 101 H 20 139/88 90 L 09/25/21 00:21 101 H 20 139/88 90 L 09/25/21 00:15 104 H 25 H 133/97 91 L 09/25/21 00:00 98.1 F 103 H 24 131/86 90 L 09/24/21 23:45 98 18 136/90 91 L 09/24/21 23:30 98 26 H 131/94 91 L 09/24/21 23:15 99 27 H 131/97 90 L 09/24/21 23:00 99 21 142/107 89 L 09/24/21 22:45 99 21 149/102 91 L 09/24/21 22:30 98 20 145/113 91 L 09/24/21 22:15 93 21 138/100 93 L 09/24/21 22:00 96 18 142/100 91 L 09/24/21 21:45 96 15 142/99 91 L 09/24/21 21:30 93 21 146/103 91 L 09/24/21 21:15 96 23 143/100 92 L 09/24/21 21:00 87 21 127/89 95 09/24/21 20:45 89 20 144/99 95 09/24/21 20:30 91 20 141/102 93 L 09/24/21 20:15 86 25 H 114/87 91 L 09/24/21 20:00 97.6 F 87 20 145/97 94 L 09/24/21 19:45 88 22 132/99 90 L 09/24/21 19:30 89 20 130/94 93 L 09/24/21 19:15 88 21 131/100 94 L 09/24/21 19:00 89 26 H 134/83 91 L 09/24/21 18:45 88 27 H 138/102 96 09/24/21 18:30 89 26 H 140/100 92 L 09/24/21 18:15 87 18 129/99 93 L 09/24/21 18:00 87 22 143/108 93 L 09/24/21 17:45 92 19 135/89 95 09/24/21 17:30 88 19 131/101 94 L 09/24/21 17:15 91 21 149/103 95 09/24/21 17:00 88 22 94 L 09/24/21 16:45 91 25 H 144/105 94 L 09/24/21 16:30 89 25 H 136/105 93 L 09/24/21 16:15 90 24 147/105 92 L 09/24/21 16:10 91 22 94 L 09/24/21 14:00 16 09/24/21 12:00 94 16 128/90 92 L 09/24/21 11:05 98 20 117/91 94 L Intake and Output 09/24/21 09/25/21 09/25/21 22:59 06:59 14:59 Intake Total 9633.500 3531 395 Output Total 0 350 0 Balance 1098.334 840 395 Intake: IV 50 Intake, IV Titration 694.563 7433 395 Amount Alteplase 10 mg In Sodium 81.667 Chloride 0.9% 90 ml @ 1 MG/HR 10 mls/hr IV .Q10H [facility] Rx#:[id number] Alteplase 10 mg In Sodium 81.667 Chloride 0.9% 90 ml @ 1 MG/HR 10 mls/hr IV .Q10H [facility] Rx#:[id number] Heparin Sod,Pork in 0.45% 15 40 10 NaCl 25,000 unit In 0.45 % NaCl 1 250ml.bag @ 2.5 mls/hr IV .Q24H [facility] Rx#: [id number] Sodium Chloride 0.9% 1, 210 435 140 000 ml @ 35 mls/hr IV . Q24H [facility] Rx#:[id number] Sodium Chloride 0.9% 1, 210 435 140 000 ml @ 35 mls/hr IV . Q24H [facility] Rx#:[id number] Sodium Chloride 0.9% 1, 210 280 105 000 ml @ 35 mls/hr IV . Q24H [facility] Rx#:[id number] Oral 240 Output: Urine 0 350 0 Other: Weight 168 kg Results 09/25/21 05:23 09/25/21 05:23 Cardiac Enzymes 09/24/21 09/24/21 09/25/21 Range/Units 10:50 13:14 05:23 AST 45 H (14-36) U/L Troponin I 0.056 H* 0.051 H* (0.000-0.034) ng/mL Coagulation 09/24/21 09/24/21 Range/Units 13:14 19:25 PT 11.3 (9.0-12.0) sec APTT 87.7 H 23.8 (22.0-30.0) sec CBC 09/24/21 09/24/21 09/25/21 Range/Units 13:14 19:25 00:49 WBC 9.6 10.8 H 9.5 (3.8-10.6) k/uL RBC 4.84 4.55 4.56 (3.80-5.40) m/uL Hgb 14.8 13.3 14.0 (11.4-16.0) gm/dL Hct 45.7 42.4 42.9 (34.0-46.0) % Plt Count 188 187 172 (150-450) k/uL 09/25/21 Range/Units 05:23 WBC 8.5 (3.8-10.6) k/uL RBC 4.49 (3.80-5.40) m/uL Hgb 13.8 (11.4-16.0) gm/dL Hct 42.4 (34.0-46.0) % Plt Count 145 L (150-450) k/uL Comprehensive Metabolic Panel 09/24/21 09/25/21 Range/Units 13:14 05:23 Sodium 140 137 (137-145) mmol/L Potassium 4.4 4.2 (3.5-5.1) mmol/L Chloride 106 107 (98-107) mmol/L Carbon Dioxide 23 22 (22-30) mmol/L BUN 19 H 17 (7-17) mg/dL Creatinine 0.71 0.75 (0.52-1.04) mg/dL Glucose 114 H 116 H (74-99) mg/dL Calcium 9.1 8.4 (8.4-10.2) mg/dL AST 45 H (14-36) U/L ALT 58 H (4-34) U/L Alkaline Phosphatase 154 H (38-126) U/L Total Protein 6.7 (6.3-8.2) g/dL Albumin 3.6 (3.5-5.0) g/dL Current Medications Generic Name Dose Route Start Last Admin Trade Name Freq PRN Reason Stop Dose Admin Apixaban 10 mg 09/25/21 09:00 Apixaban 5 Mg Tab PO 10/01/21 21:01 BID [facility] Protocol Morphine Sulfate 2 mg 09/24/21 15:45 09/25/21 06:15 Morphine Sulfate 2 Mg/Ml Syringe IVP 2 mg Q4H PRN Administration Pain Scale 4 - 6 Naloxone HCl 0.2 mg 09/24/21 09:58 Naloxone 0.4 Mg/Ml 1 Ml Vial IV Q2M PRN Opioid Reversal Ondansetron HCl 4 mg 09/24/21 09:58 Ondansetron 4 Mg/2 Ml Vial IVP Q8HR PRN Nausea And Vomiting Intake and Output 09/24/21 09/25/21 09/25/21 22:59 06:59 14:59 Intake Total 8134.387 5377 395 Output Total 0 350 0 Balance 1098.334 840 395 Intake: IV 50 Intake, IV Titration 577.129 3464 395 Amount Alteplase 10 mg In Sodium 81.667 Chloride 0.9% 90 ml @ 1 MG/HR 10 mls/hr IV .Q10H [facility] Rx#:[id number] Alteplase 10 mg In Sodium 81.667 Chloride 0.9% 90 ml @ 1 MG/HR 10 mls/hr IV .Q10H [facility] Rx#:[id number] Heparin Sod,Pork in 0.45% 15 40 10 NaCl 25,000 unit In 0.45 % NaCl 1 250ml.bag @ 2.5 mls/hr IV .Q24H [facility] Rx#: [id number] Sodium Chloride 0.9% 1, 210 435 140 000 ml @ 35 mls/hr IV . Q24H [facility] Rx#:[id number] Sodium Chloride 0.9% 1, 210 435 140 000 ml @ 35 mls/hr IV . Q24H [facility] Rx#:[id number] Sodium Chloride 0.9% 1, 210 280 105 000 ml @ 35 mls/hr IV . Q24H [facility] Rx#:[id number] Oral 240 Output: Urine 0 350 0 Other: Weight 168 kg 09/25/21 05:23 09/25/21 05:23
[2021-09-25] MEDS: APIXABAN 5 MG TAB PO SCH ×2 (09:52→20:22)
--- NOTE | 2021-09-25 10:57 | P.PN ---
Subjective Progress Note Date: 09/25/21 Principal diagnosis: Pulmonary embolism Patient seen and examined in the ICU. She is status post EKOS procedure yesterday for bilateral pulmonary embolism with evidence of right heart strain per echocardiogram. No signs or symptoms of bleeding. Blood pressure has been elevated, however the patient is in pain laying on her back. She denies any chest pain or shortness of breath. She currently has 4 L nasal cannula on with oxygen saturation 94%. Objective - Vital Signs Vital signs: Vital Signs Temp 98 F 09/25/21 04:00 Pulse 89 09/25/21 07:00 Resp 24 09/25/21 07:00 BP 129/83 09/25/21 07:00 Pulse Ox 90 L 09/25/21 07:00 FiO2 Intake & Output 09/24/21 09/25/21 09/25/21 18:59 06:59 18:59 Intake Total 500 1788.334 180 Output Total 0 350 0 Balance 500 1438.334 180 Weight 167.829 kg 168 kg Intake: IV 50 Intake, IV Titration 210 1788.334 180 Amount Alteplase 10 mg In Sodium 81.667 Chloride 0.9% 90 ml @ 1 MG/HR 10 mls/hr IV .Q10H [facility] Rx#:[id number] Alteplase 10 mg In Sodium 81.667 Chloride 0.9% 90 ml @ 1 MG/HR 10 mls/hr IV .Q10H [facility] Rx#:[id number] Heparin Sod,Pork in 0.45% 55 5 NaCl 25,000 unit In 0.45 % NaCl 1 250ml.bag @ 2.5 mls/hr IV .Q24H [facility] Rx#: [id number] Sodium Chloride 0.9% 1, 70 575 70 000 ml @ 35 mls/hr IV . Q24H [facility] Rx#:[id number] Sodium Chloride 0.9% 1, 70 575 70 000 ml @ 35 mls/hr IV . Q24H [facility] Rx#:[id number] Sodium Chloride 0.9% 1, 70 420 35 000 ml @ 35 mls/hr IV . Q24H [facility] Rx#:[id number] Oral 240 Output: Urine 0 350 0 - Exam General appearance: The patient is alert, oriented, appears in no acute dis tress. Obese. HET: Head is normocephalic and atraumatic. Pupils are equal and reactive. Neck: Supple without lymphadenopathy. Trachea midline. Heart: S1 S2. Regular rate and rhythm. Lungs: Clear to auscultation bilaterally. Abdomen: Soft, nontender, nondistended. Extremities: Normal skin color and turgor. bilateral lower extremity edema, nonpitting. Neurological: No focal deficits. Strength and sensation are grossly intact. - Labs CBC & Chem 7: 09/25/21 05:23 09/25/21 05:23 Labs: Abnormal Lab Results - Last 24 Hours (Table) 09/24/21 09/24/21 09/24/21 Range/Units 07:32 10:50 13:14 WBC (3.8-10.6) k/uL Plt Count (150-450) k/uL APTT (22.0-30.0) sec BUN (7-17) mg/dL Glucose (74-99) mg/dL POC Glucose (mg/dL) (70-110) mg/dL AST (14-36) U/L ALT (4-34) U/L Alkaline Phosphatase (38-126) U/L Troponin I 0.066 H* 0.056 H* 0.051 H* (0.000-0.034) ng/mL 09/24/21 09/24/21 09/24/21 Range/Units 13:14 13:14 16:09 WBC (3.8-10.6) k/uL Plt Count (150-450) k/uL APTT 87.7 H (22.0-30.0) sec BUN 19 H (7-17) mg/dL Glucose 114 H (74-99) mg/dL POC Glucose (mg/dL) 117 H (70-110) mg/dL AST (14-36) U/L ALT (4-34) U/L Alkaline Phosphatase (38-126) U/L Troponin I (0.000-0.034) ng/mL 09/24/21 09/25/21 09/25/21 Range/Units 19:25 05:23 05:23 WBC 10.8 H (3.8-10.6) k/uL Plt Count 145 L (150-450) k/uL APTT (22.0-30.0) sec BUN (7-17) mg/dL Glucose 116 H (74-99) mg/dL POC Glucose (mg/dL) (70-110) mg/dL AST 45 H (14-36) U/L ALT 58 H (4-34) U/L Alkaline Phosphatase 154 H (38-126) U/L Troponin I (0.000-0.034) ng/mL Assessment and Plan Assessment: 1. Bilateral pulmonary embolism with right heart strain status post EKOS procedure 2. Right lower extremity deep vein thrombosis 3. Shortness of breath 4. Morbid obesity Plan: 1. Discontinue EKOS catheter and sheath 2. Discontinue heparin 3. Start Eliquis 10 mg twice a day, starter pack sent to pharmacy 4. Patient may get up and ambulate one hour post sheath removal 5. Blood pressure control, continue recommendations for medical management Thank you for this consultation. The impression and plan of care has been dictated as directed. Dr. Galindo I performed a history and examination of this patient, discussed the same with the dictator. I agree with the dictator's note ,documented as a scribe. Any additional findings or plans will be noted.
[2021-09-25 12:46] LABS: Basophils # (A) 0.1 k/uL (0-0.2); Basophils % (A) 1 %; Eosinophils # (A) 0.2 k/uL (0-0.7); Eosinophils % (A) 2 %; HGB 13.5 gm/dL (11.4-16.0); Lymphocytes # (A) 2.1 k/uL (1.0-4.8); Lymphocytes % (A) 22 %; MCH 29.3 pg (25.0-35.0); MCHC 31.3 g/dL (31.0-37.0); MCV 93.4 fL (80.0-100.0); Mean Platelet Volume 10.8; Monocytes # (A) 0.5 k/uL (0-1.0); Monocytes % (A) 5 %; Neutrophils # (A) 6.8 k/uL (1.3-7.7); Neutrophils % (A) 70 %; Platelet Count 152 k/uL (150-450); RDW 13.6 % (11.5-15.5); WBC 9.7 k/uL (3.8-10.6)
--- NOTE | 2021-09-25 14:11 | P.PN ---
Subjective Progress Note Date: 09/25/21 Patient is a 51-year-old female with a known history of osteoarthritis, GERD, morbid obesity and prior history of smoking presents to ER with the complaints of worsening shortness of breath for the past 2 weeks. Patient has been having exertional dyspnea and also shortness of breath when lying down. Patient also felt tightness and pressure like sensation with inspiration. Denied any complaints of fever or chills. No nausea or vomiting. No abdominal pain or vomiting. No diarrhea. Denied any recent illnesses. No recent travel. Patient felt dizzy and lightheaded. Patient did have COVID-19 infection in January 2021. For the last couple of months patient has not been moving well much due to bilateral knee pain and patient does have chronic lower extremity swelling. Denied any leg pain. Chest x-ray showed no acute cardiopulmonary process. CT angiogram of the chest showed bilateral pulmonary embolus findings suggestive of right ventricular strain and pulmonary artery hypertension. EKG showed sinus tachycardia. On admission patient was tachycardic and tachypneic and pulse ox 94% on room air. Blood pressure 134/83. Laboratory test showed WBC 9.9 hemoglobin 14.7 platelets 194 D-dimer 7.71 and Sodium 139 potassium 4.5 chloride 108 bicarb is 20 BUN 19 and creatinine 0.76 and blood sugar is 154 AST 100 ALT 80 and alk phos 185 and troponin 0.066 and 0.056 and 0.051 proBNP 3040 Coronavirus PCR not detected. 09/25/2021 Patient evaluated today in the intensive care unit. She is status post EKOS procedure. Continues on 4L nasal cannula, she does report mild shortness of breath today. Femoral puncture site intact, approximated. She has been started on eliquis protocol today. Patient does use diclofenac and motrin as needed at home, which are discontinued. Will order lidocaine patch for chronic pain and patient can continue on tylenol as needed. She is agreeing with this plan. White count today 9.7, glucose 116. Liver enzymes remain elevated but tending down. She is afebrile, heart rate 92, blood pressure 114/80, 93% room air. Review of Systems Constitutional: Denied any fatigue denied any fever. Cardio vascular: denied any chest pain, palpitations Gastrointestinal: denied any nausea, vomiting, diarrhea Pulmonary: Denies cough, reports mild shortness of breath at rest Neurologic denied any new focal deficits All inpatient medications were reviewed and appropriate changes in these medications as dictated in the interval history and assessment and plan. PHYSICAL EXAMINATION: Patient is lying in the bed comfortably, no acute distress, awake alert and oriented.. Morbidly obese. HEENT: Normocephalic. Neck is supple. Pupils reactive. Nostrils clear. Oral cavity is moist. Neck reveals no JVD, carotid bruits, or thyromegaly. CHEST EXAMINATION: Trachea is central. Symmetrical expansion. Lung andres clear to auscultation and percussion. CARDIAC: Normal S1, S2 with no gallops. No murmurs ABDOMEN: Soft. Bowel sounds present. Nontender. No organomegaly. No abdominal bruits. Extremities: Bilateral lower extremity swelling 2+. No clubbing or cyanosis Neurologically awake, alert, oriented x3 with well-coordinated movements. No focal deficits noted Skin: No rash or skin lesions. Psychiatric: Coperative. Nonsuicidal, anxious. Musculoskeletal: No joint swelling or deformity. Normal range of motion. Assessment and Plan Assessment Acute bilateral pulmonary embolism with evidence of right ventricular strain and pulmonary artery hypertension as per CTA chest. Etiology likely due to sedentary lifestyle. Patient is status post EKOS procedure. Right lower extremity DVT Mild transaminitis, improving Elevated troponin level likely due to right ventricular strain. History of COVID-19 infection in January 2021 GERD Osteoarthritis of the bilateral knees Previous history of smoking Morbid obesity with BMI 51.6 DVT prophylaxis: Eliquis GI prophylaxis: Pepcid Plan: Patient will continue to be monitored in the intensive care unit overnight. She is status post EKOS procedure and is being followed closely by vascular services. She has been started on eliquis and also pepcid added for GI prophylaxis. She is also being followed by cardiology and will follow up in the office on discharge. Continue with home medications and follow-up closely. Prognosis is guarded. The impression and plan of care has been dictated by Rin Dupree Nurse Practitioner as directed. Dr. Gloria MD I have performed a history and physical examination and medical decision making of this patient, discussed the same with the dictator, and agree with the dictators assessment and plan as written, documented as a scribe. Based on total visit time, I have performed more than 50% of this visit. Objective - Vital Signs Vital signs: Vital Signs Temp 98.1 F 09/25/21 12:00 Pulse 96 09/25/21 12:00 Resp 21 09/25/21 12:00 BP 133/85 09/25/21 12:00 Pulse Ox 94 L 09/25/21 12:00 FiO2 Intake & Output 09/24/21 09/25/21 09/25/21 18:59 06:59 18:59 Intake Total 500 1788.334 797 Output Total 0 350 0 Balance 500 1438.334 797 Weight 167.829 kg 168 kg Intake: IV 50 Intake, IV Titration 210 1788.334 395 Amount Alteplase 10 mg In Sodium 81.667 Chloride 0.9% 90 ml @ 1 MG/HR 10 mls/hr IV .Q10H [facility] Rx#:[id number] Alteplase 10 mg In Sodium 81.667 Chloride 0.9% 90 ml @ 1 MG/HR 10 mls/hr IV .Q10H [facility] Rx#:[id number] Heparin Sod,Pork in 0.45% 55 10 NaCl 25,000 unit In 0.45 % NaCl 1 250ml.bag @ 2.5 mls/hr IV .Q24H [facility] Rx#: [id number] Sodium Chloride 0.9% 1, 70 575 140 000 ml @ 35 mls/hr IV . Q24H [facility] Rx#:[id number] Sodium Chloride 0.9% 1, 70 575 140 000 ml @ 35 mls/hr IV . Q24H [facility] Rx#:[id number] Sodium Chloride 0.9% 1, 70 420 105 000 ml @ 35 mls/hr IV . Q24H [facility] Rx#:[id number] Oral 240 402 Output: Urine 0 350 0 Other: # Voids 1 - Labs CBC & Chem 7: 09/25/21 12:34 09/25/21 05:23 Labs: Abnormal Lab Results - Last 24 Hours (Table) 09/24/21 09/24/21 09/24/21 Range/Units 13:14 13:14 13:14 WBC (3.8-10.6) k/uL Plt Count (150-450) k/uL APTT 87.7 H (22.0-30.0) sec BUN 19 H (7-17) mg/dL Glucose 114 H (74-99) mg/dL POC Glucose (mg/dL) (70-110) mg/dL AST (14-36) U/L ALT (4-34) U/L Alkaline Phosphatase (38-126) U/L Troponin I 0.051 H* (0.000-0.034) ng/mL 09/24/21 09/24/21 09/25/21 Range/Units 16:09 19:25 05:23 WBC 10.8 H (3.8-10.6) k/uL Plt Count 145 L (150-450) k/uL APTT (22.0-30.0) sec BUN (7-17) mg/dL Glucose (74-99) mg/dL POC Glucose (mg/dL) 117 H (70-110) mg/dL AST (14-36) U/L ALT (4-34) U/L Alkaline Phosphatase (38-126) U/L Troponin I (0.000-0.034) ng/mL 09/25/21 Range/Units 05:23 WBC (3.8-10.6) k/uL Plt Count (150-450) k/uL APTT (22.0-30.0) sec BUN (7-17) mg/dL Glucose 116 H (74-99) mg/dL POC Glucose (mg/dL) (70-110) mg/dL AST 45 H (14-36) U/L ALT 58 H (4-34) U/L Alkaline Phosphatase 154 H (38-126) U/L Troponin I (0.000-0.034) ng/mL Assessment and Plan Time with Patient: Less than 30
--- NOTE | 2021-09-25 14:22 | P.CNPUL ---
History of Present Illness Consult date: 09/25/21 Reason for consult: obstructive sleep apnea History of present illness: 51-year-old obese female patient has been experiencing progressive increase in shortness of breath over the past 3 weeks. The patient furthermore to care with trip to [place]. The patient came into the emergency experiencing dyspnea. No pleurisy. No hemoptysis. Chest her chest was tight and she did have some vague discomfort with deep breathing. In any rate, the patient will further investigated. Doppler of the lower extremity showed a nonocclusive DVT involvi ng the right [place] the patient also had a CT angiogram that showed multiple bilateral pulmonary emboli and RV strain. Echocardiogram showed LV function being at 55%. There was moderate RV dilatation. Pulmonary artery pressures were not estimated because of the patient's body habitus. The patient was started on IV heparin. She was admitted intensive care unit. The patient did not require any oxygen. She was on 4 L of oxygen nasal cannula. She was seen by vascular surgery and she underwent EKOS therapy overnight and the patient completed the treatment this morning. Catheter or the been removed. She is calm and comfortable and she remains hemodynamically stable and she has no evidence of any bleeding. The patient's reports no previous DVTs or pulmonary emboli. No personal or family history of any DVT or PE. She has no previous history of hypercoagulability. No history of any malignancy. Most of any orthopedic surgery. She is obese and she seems to be quite sedentary in her lifestyle.The patient has a white cell count of 9.7 with hemoglobin 13.5. D- dimer was obviously elevated. Electrodes are all within normal limits. Normal renal function. She was already started on Eliquis today 10 mg by mouth twice a day. Review of Systems Constitutional: Denies chills, Denies fever Eyes: denies as per HPI, denies blurred vision, denies bulging eye, denies decreased vision, denies diplopia, denies discharge, denies dry eye, denies irritation, denies itching, denies pain, denies photophobia, denies loss of peripheral vision, denies loss of vision, denies tunnel vision/blind spots Ears: deny: decreased hearing, ear discharge, earache, tinnitus Ears, nose, mouth and throat: Reports as per HPI Breasts: absent: as per HPI, change in shape, gynecomastia, masses, nipple discharge, pain, skin changes, swelling Cardiovascular: Reports chest pain, Reports decreased exercise tolerance, Reports dyspnea on exertion Respiratory: Reports dyspnea Gastrointestinal: Reports as per HPI Genitourinary: Reports as per HPI Menstruation: Reports as per HPI Musculoskeletal: Reports limitation of motion, Reports low back pain Musculoskeletal: absent: ankle pain, ankle stiffness, ankle swelling Integumentary: Reports as per HPI Neurological: Reports as per HPI Psychiatric: Reports as per HPI Endocrine: Reports as per HPI Hematologic/Lymphatic: Reports as per HPI Allergic/Immunologic: Reports as per HPI Past Medical History Past Medical History: GERD/Reflux, Osteoarthritis (OA), Pneumonia Additional Past Medical History / Comment(s): Pneumonia twice, UTI once, newly diagnosed with arthritis bilateral knees, pt had covid 01/2021 History of Any Multi-Drug Resistant Organisms: None Reported Additional Past Surgical History / Comment(s): D&C x2 Past Anesthesia/Blood Transfusion Reactions: No Reported Reaction Smoking Status: Former smoker - Past Family History Mother Family Medical History: No Reported History Additional Family Medical History / Comment(s): Mother is healthy Father Family Medical History: Hyperlipidemia, Hypertension Medications and Allergies Home Medications Medication Instructions Recorded Confirmed Type Acetaminophen [Tylenol Arthritis] 650 mg PO Q8H PRN 09/24/21 09/24/21 History Apixaban [Eliquis Starter Pack 5 - 10 mg PO DIRECTED 30 Days 09/25/21 Rx (for VTE)] #1 each Allergies Allergy/AdvReac Type Severity Reaction Status Date / Time No Known Allergies Allergy Verified 09/24/21 10:29 Physical Exam Vitals: Vital Signs Temp Pulse Pulse Resp BP BP Pulse Ox 09/25/21 09:15 92 14 132/104 89 L 09/25/21 09:00 89 26 H 144/97 91 L 09/25/21 08:45 88 26 H 144/97 94 L 09/25/21 08:30 90 26 H 144/100 92 L 09/25/21 08:15 87 28 H 144/100 92 L 09/25/21 08:00 98.1 F 86 18 132/102 93 L 09/25/21 07:45 92 25 H 129/97 91 L 09/25/21 07:30 91 21 139/99 90 L 09/25/21 07:15 92 24 118/82 88 L 09/25/21 07:00 89 24 129/83 90 L 09/25/21 06:45 90 20 128/90 91 L 09/25/21 06:30 94 22 125/89 92 L 09/25/21 06:15 90 23 127/84 91 L 09/25/21 06:00 92 20 121/80 91 L 09/25/21 05:45 96 20 123/84 94 L 09/25/21 05:30 98 22 124/93 93 L 09/25/21 05:15 93 24 141/100 92 L 09/25/21 05:00 92 22 137/97 91 L 09/25/21 04:45 96 21 135/95 90 L 09/25/21 04:30 93 20 135/101 92 L 09/25/21 04:15 95 27 H 126/98 92 L 09/25/21 04:00 98 F 98 23 132/93 93 L 09/25/21 03:45 111 H 20 125/100 91 L 09/25/21 03:30 93 20 134/100 91 L 09/25/21 03:15 96 22 130/95 91 L 09/25/21 03:00 94 24 131/90 91 L 09/25/21 02:45 97 24 125/89 91 L 09/25/21 02:30 97 23 144/97 91 L 09/25/21 02:15 97 32 H 140/93 91 L 09/25/21 02:00 105 H 21 149/90 89 L 09/25/21 01:45 99 31 H 145/99 93 L 09/25/21 01:30 101 H 20 148/102 91 L 09/25/21 01:17 99 20 148/102 90 L 09/25/21 01:00 100 20 124/98 90 L 09/25/21 00:45 101 H 23 128/100 90 L 09/25/21 00:30 101 H 20 139/88 90 L 09/25/21 00:21 101 H 20 139/88 90 L 09/25/21 00:15 104 H 25 H 133/97 91 L 09/25/21 00:00 98.1 F 103 H 24 131/86 90 L 09/24/21 23:45 98 18 136/90 91 L 09/24/21 23:30 98 26 H 131/94 91 L 09/24/21 23:15 99 27 H 131/97 90 L 09/24/21 23:00 99 21 142/107 89 L 09/24/21 22:45 99 21 149/102 91 L 09/24/21 22:30 98 20 145/113 91 L 09/24/21 22:15 93 21 138/100 93 L 09/24/21 22:00 96 18 142/100 91 L 09/24/21 21:45 96 15 142/99 91 L 09/24/21 21:30 93 21 146/103 91 L 09/24/21 21:15 96 23 143/100 92 L 09/24/21 21:00 87 21 127/89 95 09/24/21 20:45 89 20 144/99 95 09/24/21 20:30 91 20 141/102 93 L 09/24/21 20:15 86 25 H 114/87 91 L 09/24/21 20:00 97.6 F 87 20 145/97 94 L 09/24/21 19:45 88 22 132/99 90 L 09/24/21 19:30 89 20 130/94 93 L 09/24/21 19:15 88 21 131/100 94 L 09/24/21 19:00 89 26 H 134/83 91 L 09/24/21 18:45 88 27 H 138/102 96 09/24/21 18:30 89 26 H 140/100 92 L 09/24/21 18:15 87 18 129/99 93 L 09/24/21 18:00 87 22 143/108 93 L 09/24/21 17:45 92 19 135/89 95 09/24/21 17:30 88 19 131/101 94 L 09/24/21 17:15 91 21 149/103 95 09/24/21 17:00 88 22 94 L 09/24/21 16:45 91 25 H 144/105 94 L 09/24/21 16:30 89 25 H 136/105 93 L 09/24/21 16:15 90 24 147/105 92 L 09/24/21 16:10 91 22 94 L 09/24/21 14:00 16 09/24/21 12:00 94 16 128/90 92 L 09/24/21 11:05 98 20 117/91 94 L Intake and Output 07/09/25/21 09/25/21 22:59 06:59 14:59 Intake Total 1783.255 4249 395 Output Total 0 350 0 Balance 1098.334 840 395 Intake: IV 50 Intake, IV Titration 796.248 5096 395 Amount Alteplase 10 mg In Sodium 81.667 Chloride 0.9% 90 ml @ 1 MG/HR 10 mls/hr IV .Q10H [facility] Rx#:[id number] Alteplase 10 mg In Sodium 81.667 Chloride 0.9% 90 ml @ 1 MG/HR 10 mls/hr IV .Q10H [facility] Rx#:[id number] Heparin Sod,Pork in 0.45% 15 40 10 NaCl 25,000 unit In 0.45 % NaCl 1 250ml.bag @ 2.5 mls/hr IV .Q24H [facility] Rx#: [id number] Sodium Chloride 0.9% 1, 210 435 140 000 ml @ 35 mls/hr IV . Q24H [facility] Rx#:[id number] Sodium Chloride 0.9% 1, 210 435 140 000 ml @ 35 mls/hr IV . Q24H [facility] Rx#:[id number] Sodium Chloride 0.9% 1, 210 280 105 000 ml @ 35 mls/hr IV . Q24H [facility] Rx#:[id number] Oral 240 Output: Urine 0 350 0 Other: Weight 168 kg Patient is lying in the bed comfortably, no acute distress, awake alert and oriented.. Morbidly obese.body mass index is 51. The patientis currently on 4 L of O2 nasal cannula HEENT: Normocephalic. Neck is supple. Pupils reactive. Nostrils clear. Oral cavi ty is moist. Neck reveals no JVD, carotid bruits, or thyromegaly. CHEST EXAMINATION: Trachea is central. Symmetrical expansion. Lung andres clear to auscultation and percussion. CARDIAC: Normal S1, S2 with no gallops. No murmurs ABDOMEN: Soft. Bowel sounds present. Nontender. No organomegaly. No abdominal bruits. Extremities: Bilateral lower extremity swelling 2+. No clubbing or cyanosis, the right lower eczematous slightly swollen compared to the left. Neurologically awake, alert, oriented x3 with well-coordinated movements. No focal deficits noted Skin: No rash or skin lesions. Psychiatric: Coperative. Nonsuicidal, anxious. Musculoskeletal: No joint swelling or deformity. Normal range of motion. Results - Laboratory Findings CBC and BMP: 09/25/21 12:34 09/25/21 05:23 PT/INR, D-dimer PT 11.3 sec (9.0-12.0) 09/24/21 13:14 INR 1.0 (<1.2) 09/24/21 13:14 D-Dimer 7.71 mg/L FEU (<0.60) H 09/24/21 07:32 Abnormal lab findings: Abnormal Labs 09/24/21 09/24/21 09/24/21 07:32 07:32 07:32 WBC Plt Count APTT D-Dimer 7.71 H Chloride 108 H Carbon Dioxide 20 L BUN 19 H Glucose 154 H POC Glucose (mg/dL) AST 100 H ALT 80 H Alkaline Phosphatase 185 H Troponin I 0.066 H* 09/24/21 09/24/21 09/24/21 10:50 13:14 13:14 WBC Plt Count APTT 87.7 H D-Dimer Chloride Carbon Dioxide BUN Glucose POC Glucose (mg/dL) AST ALT Alkaline Phosphatase Troponin I 0.056 H* 0.051 H* 09/24/21 09/24/21 09/24/21 13:14 16:09 19:25 WBC 10.8 H Plt Count APTT D-Dimer Chloride Carbon Dioxide BUN 19 H Glucose 114 H POC Glucose (mg/dL) 117 H AST ALT Alkaline Phosphatase Troponin I 09/25/21 09/25/21 05:23 05:23 WBC Plt Count 145 L APTT D-Dimer Chloride Carbon Dioxide BUN Glucose 116 H POC Glucose (mg/dL) AST 45 H ALT 58 H Alkaline Phosphatase 154 H Troponin I - Diagnostic Findings Chest x-ray: image reviewed CT scan - chest: image reviewed Assessment and Plan Plan: Acute bilateral pulmonary embolism with RV dilatation and strain, the patient completed EKOS and the patient remains hemodynamically stable. The patient will be changed from out of the intensive care unit today. The patient to be started on Eliquis. This is an unprovoked event Right lower extremity DVT Acute shortness of breath secondary to above Acute hypoxic respiratory failure secondary to above and the patient is currently on 4 L Morbid obesity with BMI 51.7 Previous history of smoking Degenerative arthritis Sedentary lifestyle Previous history of COVID 19 infection back in January 2021 Plan Based on the severity and the unprovoked nature of this pulmonary embolism, William austin recommend long-term articulation this patient. A hypercoagulable workup can be done at a later stage on outpatient basis. Continue oxygen therapy at 4 L and gradually wean it down Start Eliquis 10 mg by mouth twice a day Watch for any signs of bleeding The workup has been completed and echocardiogram is been noted We'll continue to follow
[2021-09-25] MEDS: LIDOCAINE 5% PATCH TOPICAL SCH (15:36)
[2021-09-25] MEDS: FAMOTIDINE 20 MG TAB PO SCH (20:23)
[2021-09-26 08:42] LABS: Basophils # (A) 0.1 k/uL (0-0.2); Basophils % (A) 1 %; Eosinophils # (A) 0.3 k/uL (0-0.7); Eosinophils % (A) 4 %; HCT 42.9 % (34.0-46.0); HGB 13.3 gm/dL (11.4-16.0); Lymphocytes # (A) 2.5 k/uL (1.0-4.8); Lymphocytes % (A) 28 %; MCH 29.3 pg (25.0-35.0); MCHC 31.1 g/dL (31.0-37.0); Mean Platelet Volume 10.5; Monocytes # (A) 0.5 k/uL (0-1.0); Monocytes % (A) 5 %; Neutrophils # (A) 5.2 k/uL (1.3-7.7); Neutrophils % (A) 61 %; Platelet Count 144 k/uL (150-450); RBC 4.56 m/uL (3.80-5.40); RDW 13.6 % (11.5-15.5); WBC 8.6 k/uL (3.8-10.6)
[2021-09-26 08:59] LABS: ALT 51 U/L (4-34); AST 41 U/L (14-36); African American GFR (CKD) >90 (>60 ml/min/1.73 sqM); Albumin 3.6 g/dL (3.5-5.0); Alkaline Phosphatase 154 U/L (38-126); Anion Gap 9 mmol/L; Blood Urea Nitrogen 14 mg/dL (7-17); Calcium 8.3 mg/dL (8.4-10.2); Carbon Dioxide 20 mmol/L (22-30); Chloride 107 mmol/L (98-107); Glucose 165 mg/dL (74-99); Non-African American GFR(CKD) >90 (>60 ml/min/1.73 sqM); Potassium 4.3 mmol/L (3.5-5.1); Sodium 136 mmol/L (137-145); Total Bilirubin 0.8 mg/dL (0.2-1.3); Total Protein 6.7 g/dL (6.3-8.2)
[2021-09-26] MEDS: FAMOTIDINE 20 MG TAB PO SCH ×2 (09:10→19:53)
[2021-09-26] MEDS: APIXABAN 5 MG TAB PO SCH ×2 (09:10→19:53)
[2021-09-26] MEDS: LIDOCAINE 5% PATCH TOPICAL SCH ×2 (09:14→10:43)
--- NOTE | 2021-09-26 11:47 | P.PN ---
Subjective Progress Note Date: 09/26/21 HISTORY OF PRESENT ILLNESS: This is a 51-year-old female who is admitted to the hospital secondary to bilateral pulmonary emboli. She underwent EKOS on 09/24/2021. She denies chest pain or pressure. She reports shortness of breath with exertion. She remains on 2 L nasal cannula. PHYSICAL EXAM: VITAL SIGNS: Reviewed. GENERAL: Well-developed in no acute distress. NECK: Supple. No JVD or thyromegaly LUNGS: Respirations even and unlabored. Lungs essentially clear to auscultation bilaterally. HEART: Regular rate and rhythm. S1 and S2 heard. EXTREMITIES: Normal range of motion. No clubbing or cyanosis. Peripheral pulses intact. No lower extremity edema ASSESSMENT: Bilateral pulmonary emboli S/P EKOS procedure Right heart strain Abnormal troponins, secondary to PE PLAN: Patient is currently stable from a cardiac standpoint She may be discharged from a cardiology perspective Nurse practitioner note has been reviewed by physician. Signing provider agrees with the documented findings, assessment, and plan of care. Objective - Vital Signs Vital signs: Vital Signs Temp 97.5 F L 09/26/21 08:00 Pulse 86 09/26/21 08:00 Resp 14 09/26/21 08:00 BP 132/82 09/26/21 08:00 Pulse Ox 92 L 09/26/21 08:00 FiO2 Intake & Output 09/25/21 09/26/21 09/26/21 18:59 06:59 18:59 Intake Total 1755 Output Total 475 Balance 1280 Intake: Intake, IV Titration 395 Amount Heparin Sod,Pork in 0.45% 10 NaCl 25,000 unit In 0.45 % NaCl 1 250ml.bag @ 2.5 mls/hr IV .Q24H [facility] Rx#: [id number] Sodium Chloride 0.9% 1, 140 000 ml @ 35 mls/hr IV . Q24H [facility] Rx#:[id number] Sodium Chloride 0.9% 1, 140 000 ml @ 35 mls/hr IV . Q24H [facility] Rx#:[id number] Sodium Chloride 0.9% 1, 105 000 ml @ 35 mls/hr IV . Q24H [facility] Rx#:[id number] Oral 1360 Output: Urine 475 Other: # Voids 1 1 1 - Labs CBC & Chem 7: 09/26/21 08:21 09/26/21 08:21 Labs: Abnormal Lab Results - Last 24 Hours (Table) 09/26/21 09/26/21 Range/Units 08:21 08:21 Plt Count 144 L (150-450) k/uL Sodium 136 L (137-145) mmol/L Carbon Dioxide 20 L (22-30) mmol/L Glucose 165 H (74-99) mg/dL Calcium 8.3 L (8.4-10.2) mg/dL AST 41 H (14-36) U/L ALT 51 H (4-34) U/L Alkaline Phosphatase 154 H (38-126) U/L
[2021-09-26 11:51] LABS: Glucose,Whole Blood 108 mg/dL (70-110)
--- NOTE | 2021-09-26 12:33 | P.PN ---
Subjective Progress Note Date: 09/26/21 Principal diagnosis: Pulmonary embolism Patient seen and examined follow-up for pulmonary embolism status post EKOS procedure. She states her breathing has improved. She was transferred out of the ICU yesterday. She is requiring 2 L nasal cannula at this time with oxygen saturation 92%. She is denying any chest pain, abdominal pain, nausea or vomiting. No bleeding from the access site. She has been up and ambulating to the bathroom. Objective - Vital Signs Vital signs: Vital Signs Temp 98.2 F 09/26/21 04:00 Pulse 86 09/26/21 04:00 Resp 18 09/26/21 04:00 BP 126/98 09/26/21 04:00 Pulse Ox 92 L 09/26/21 04:00 FiO2 Intake & Output 09/25/21 09/26/21 09/26/21 18:59 06:59 18:59 Intake Total 1755 Output Total 475 Balance 1280 Intake: Intake, IV Titration 395 Amount Heparin Sod,Pork in 0.45% 10 NaCl 25,000 unit In 0.45 % NaCl 1 250ml.bag @ 2.5 mls/hr IV .Q24H [facility] Rx#: [id number] Sodium Chloride 0.9% 1, 140 000 ml @ 35 mls/hr IV . Q24H [facility] Rx#:[id number] Sodium Chloride 0.9% 1, 140 000 ml @ 35 mls/hr IV . Q24H [facility] Rx#:[id number] Sodium Chloride 0.9% 1, 105 000 ml @ 35 mls/hr IV . Q24H [facility] Rx#:[id number] Oral 1360 Output: Urine 475 Other: # Voids 1 1 - Exam General appearance: The patient is alert, oriented, appears in no acute distress. Obese. HET: Head is normocephalic and atraumatic. Pupils are equal and reactive. Neck: Supple without lymphadenopathy. Trachea midline. Heart: S1 S2. Regular rate and rhythm. Lungs: Clear to auscultation bilaterally. Abdomen: Soft, nontender, nondistended. Extremities: Normal skin color and turgor. bilateral lower extremity edema, nonpitting. Neurological: No focal deficits. Strength and sensation are grossly intact. - Labs CBC & Chem 7: 09/26/21 08:21 09/26/21 08:21 Labs: Abnormal Lab Results - Last 24 Hours (Table) 09/26/21 Range/Units 08:21 Plt Count 144 L (150-450) k/uL Assessment and Plan Assessment: 1. Bilateral pulmonary embolism with right heart strain status post EKOS procedure 2. Right lower extremity deep vein thrombosis 3. Shortness of breath 4. Morbid obesity Plan: 1. Eliquis 10 mg twice a day, starter pack sent to pharmacy 2. Encourage ambulation 3. Continue medical management Thank you for this consultation, patient is cleared from vascular surgery for discharge. We'll sign off at this time. The impression and plan of care has been dictated as directed. Dr. Galindo I performed a history and examination of this patient, discussed the same with the dictator. I agree with the dictator's note ,documented as a scribe. Any additional findings or plans will be noted.
--- NOTE | 2021-09-26 12:59 | CDI ---
Documentation Clarification Form Date: 09/26/2021 12:29:31 PM From: Amina Adam RN, CCDS Admit Date: 09/24/2021 10:01:00 AM Patient Name: Yazmin Chavez Visit Number: [id number] Discharge Date: ATTENTION: The Clinical Documentation Specialists (CDI) and [facility] Coding Staff appreciate your assistance in clarifying documentation. Please respond to the clarification below the line at the bottom and electronically sign. The CDI & [facility] Coding staff will review the response and follow-up if needed. Please note: Queries are made part of the Legal Health Record. If you have any questions, please contact the author of this message via ITS. Dr. Estefany Weber There is documentation of acute bilateral pulmonary embolism with RV dilatation and strain in the pulmonary consult on 09/25/21. Additional clarification is requested. History/Risk Factors: Pneumonia Covid 01/2021, Morbid obesity (BMI 51.7), Former smoker Clinical Indicators: 51-year-old female present with progressive increase in shortness of breath over the past [address] angiogram that showed multiple bilateral pulmonary emboli and RV strain. Right lower extremity DVT. Echocardiogram showed LF function with EF 55%. There was moderate RV dilation. Pulmonary artery pressures were not estimated because of the patient's body habitus. 09/24 Labs: WBC9.9 D-Dimer 7.71, Troponin I 0.066, 0.056, 0.051, BNP 3040 09/24 CXR: No acute cardiopulmonary process Treatment: ICU, Cardiac/Telemetry monitoring Heparin Drip (per orders) 09/24 Monitor O2 Sat's (titrate) EKOS therapy Eliquis 10 MG PO BID, 09/25 monitor PT/INR Can you please further clarify acute bilateral pulmonary embolism with RV dilation and strain are you treating? [ ] Acute bilateral pulmonary embolism with RV dilation and strain and acute cor pulmonale [ ] Acute bilateral pulmonary embolism with RV dilation and strain without cor pulmonale [ ] Other, please specify [ ] Unable to determine (Template Last Revised: May 2020) Acute bilateral pulmonary embolism with RV &dilatation and strain without acute cor pulmonale, the patient completed EKOS and the patient remains hemodynamically stable. Dictated By: Donna Treadwell Signed By: <Electronically signed by Donna HARDIN> 09/26/21 1511 <Electronically signed by Estefany Weber MD> 09/26/21 1513 <Electronically signed by Estefany Weber MD> [facility]
--- NOTE | 2021-09-26 15:11 | P.PN ---
Subjective Progress Note Date: 09/26/21 51-year-old obese female patient has been experiencing progressive increase in shortness of breath over the past 3 weeks. The patient furthermore to care with trip to [place]. The patient came into the emergency experiencing dyspnea. No pleurisy. No hemoptysis. Chest her chest was tight and she did have some vague discomfort with deep breathing. In any rate, the patient will further investigated. Doppler of the lower extremity showed a nonocclusive DVT involving the right poplitealand the patient also had a CT angiogram that showed multiple bilateral pulmonary emboli and RV strain. Echocardiogram showed LV function being at 55%. There was moderate RV dilatation. Pulmonary artery pressures were not estimated because of the patient's body habitus. The patient was started on IV heparin. She was admitted intensive care unit. The patient did not require any oxygen. She was on 4 L of oxygen nasal cannula. She was seen by vascular surgery and she underwent EKOS therapy overnight and the patient completed the treatment this morning. Catheter or the been removed. She is calm and comfortable and she remains hemodynamically stable and she has no evidence of any bleeding. The patient's reports no previous DVTs or pulmonary emboli. No personal or family history of any DVT or PE. She has no previous history of hypercoagulability. No history of any malignancy. Most of any orthopedic surgery. She is obese and she seems to be quite sedentary in her lifestyle.The patient has a white cell count of 9.7 with hemoglobin 13.5. D- dimer was obviously elevated. Electrodes are all within normal limits. Normal renal function. She was already started on Eliquis today 10 mg by mouth twice a day. The patient is seen today 09/26/2021 in follow-up on the selective care unit. She is currently sitting up in a chair at the bedside. Awake and alert in no acute distress. She is maintaining good O2 saturations in the 90s on room air. Afebrile. Hemodynamically stable. White count 8.6. Hemoglobin 13.3. Platelets 144. Sodium 136. Potassium 4.3. Bicarb 20. BUN 14. Creatinine 0.73. Glucose 165. AST 41. ALT 51. She is converted to oral anticoagulant form of Eliquis. Objective - Vital Signs Vital signs: Vital Signs Temp 97.6 F 09/26/21 12:06 Pulse 83 09/26/21 12:06 Resp 16 09/26/21 12:06 BP 123/90 09/26/21 12:06 Pulse Ox 93 L 09/26/21 12:06 FiO2 Intake & Output 09/25/21 09/26/21 09/26/21 18:59 06:59 18:59 Intake Total 1755 Output Total 475 Balance 1280 Intake: Intake, IV Titration 395 Amount Heparin Sod,Pork in 0.45% 10 NaCl 25,000 unit In 0.45 % NaCl 1 250ml.bag @ 2.5 mls/hr IV .Q24H DANIELLE Rx#: [id number] Sodium Chloride 0.9% 1, 140 000 ml @ 35 mls/hr IV . Q24H DANIELLE Rx#:[id number] Sodium Chloride 0.9% 1, 140 000 ml @ 35 mls/hr IV . Q24H DANIELLE Rx#:[id number] Sodium Chloride 0.9% 1, 105 000 ml @ 35 mls/hr IV . Q24H DANIELLE Rx#:[id number] Oral 1360 Output: Urine 475 Other: # Voids 1 1 1 - Exam GENERAL EXAM: Alert, obese, pleasant 51-year-old female, , comfortable in no apparent distress. HEAD: Normocephalic. EYES: Normal reaction of pupils, equal size. NOSE: Clear with pink turbinates. THROAT: No erythema or exudates. NECK: No masses, no JVD. CHEST: No chest wall deformity. LUNGS: Equal air entry with no crackles, wheeze, rhonchi or dullness. CVS: S1 and S2 normal with no audible murmur, regular rhythm. ABDOMEN: No hepatosplenomegaly, normal bowel sounds, no guarding or rigidity. SPINE: No scoliosis or deformity SKIN: No rashes CENTRAL NERVOUS SYSTEM: No focal deficits, tone is normal in all 4 extremities. EXTREMITIES: There is 1+ peripheral edema. No clubbing, no cyanosis. Peripheral pulses are intact. - Labs CBC & Chem 7: 09/26/21 08:21 09/26/21 08:21 Labs: Abnormal Lab Results - Last 24 Hours (Table) 09/26/21 09/26/21 Range/Units 08:21 08:21 Plt Count 144 L (150-450) k/uL Sodium 136 L (137-145) mmol/L Carbon Dioxide 20 L (22-30) mmol/L Glucose 165 H (74-99) mg/dL Calcium 8.3 L (8.4-10.2) mg/dL AST 41 H (14-36) U/L ALT 51 H (4-34) U/L Alkaline Phosphatase 154 H (38-126) U/L Assessment and Plan Assessment: Acute bilateral pulmonary embolism with RV dilatation and strain without acute cor pulmonale, the patient completed EKOS and the patient remains hemo dynamically stable. Stable and on room air. The patient was started on Eliquis. This is an unprovoked event Right lower extremity DVT, initiated on Eliquis Acute shortness of breath secondary to above Acute hypoxic respiratory failure secondary to above, recovered and on room air Morbid obesity with BMI 51.7 Previous history of smoking Degenerative arthritis Sedentary lifestyle Previous history of COVID 19 infection back in January 2021 Plan The patient was seen and evaluated Labs and medications reviewed Transitioned to Eliquis Stable and on room air Cleared for discharge from the pulmonary standpoint I have personally seen and examined the patient, performed the documentation and the assessment and plan as written. I have personally seen and examined the patient and reviewed the documentation. I performed a joint evaluation with the nurse practitioner in this evaluation was done more than 20 minutes. I fully agree with the documentation above and the plan of care.. The patient is doing well. The patient has already been started on Eliquis. Oxidation is also improvement in the patient's currently on 2 L about 2 by nasal cannula. No calf pain. No hemodynamic instability.
[2021-09-26 16:41] LABS: Glucose,Whole Blood 120 mg/dL (70-110)
[2021-09-26 20:30] LABS: Glucose,Whole Blood 171 mg/dL (70-110)
[2021-09-27 06:03] LABS: Glucose,Whole Blood 124 mg/dL (70-110)
[2021-09-27] MEDS: FAMOTIDINE 20 MG TAB PO SCH ×2 (08:16→19:43)
[2021-09-27] MEDS: APIXABAN 5 MG TAB PO SCH ×2 (08:16→19:42)
[2021-09-27] MEDS: LIDOCAINE 5% PATCH TOPICAL SCH (08:16)
--- NOTE | 2021-09-27 11:42 | P.PN ---
Subjective Progress Note Date: 09/27/21 51-year-old obese female patient has been experiencing progressive increase in shortness of breath over the past 3 weeks. The patient furthermore to care with trip to [place]. The patient came into the emergency experiencing dyspnea. No pleurisy. No hemoptysis. Chest her chest was tight and she did have some vague discomfort with deep breathing. In any rate, the patient will further investigated. Doppler of the lower extremity showed a nonocclusive DVT involving the right [place]lite[place] the patient also had a CT angiogram that showed multiple bilateral pulmonary emboli and RV strain. Echocardiogram showed LV function being at 55%. There was moderate RV dilatation. Pulmonary artery pressures were not estimated because of the patient's body habitus. The patient was started on IV heparin. She was admitted intensive care unit. The patient did not require any oxygen. She was on 4 L of oxygen nasal cannula. She was seen by vascular surgery and she underwent EKOS therapy overnight and the patient completed the treatment this morning. Catheter or the been removed. She is calm and comfortable and she remains hemodynamically stable and she has no evidence of any bleeding. The patient's reports no previous DVTs or pulmonary emboli. No personal or family history of any DVT or PE. She has no previous history of hypercoagulability. No history of any malignancy. Most of any orthopedic surgery. She is obese and she seems to be quite sedentary in her lifestyle.The patient has a white cell count of 9.7 with hemoglobin 13.5. D- dimer was obviously elevated. Electrodes are all within normal limits. Normal renal function. She was already started on Eliquis today 10 mg by mouth twice a day. The patient is seen today 09/26/2021 in follow-up on the selective care unit. She is currently sitting up in a chair at the bedside. Awake and alert in no acute distress. She is maintaining good O2 saturations in the 90s on room air. Afebrile. Hemodynamically stable. White count 8.6. Hemoglobin 13.3. Platelets 144. Sodium 136. Potassium 4.3. Bicarb 20. BUN 14. Creatinine 0.73. Glucose 165. AST 41. ALT 51. She is converted to oral anticoagulant form of Eliquis. 09/24/2021, the patient has no specific complaints and the patient is currently on room air oxygen and the patient is receiving anticoagulation with Eliquis 10 mg by mouth twice a day. She is ambulating. No blood work from today. Nevertheless, the patient has not shown any side effects or bleeding complications from Eliquis. No pleurisy. No hemoptysis. Objective - Vital Signs Vital signs: Vital Signs Temp 98.0 F 09/27/21 08:12 Pulse 90 09/27/21 08:12 Resp 15 09/27/21 08:12 BP 117/77 09/27/21 08:12 Pulse Ox 95 09/27/21 08:12 FiO2 Intake & Output 09/26/21 09/27/21 09/27/21 18:59 06:59 18:59 Intake Total 668 Balance 668 Weight 170.4 kg Intake: Oral 668 Other: # Voids 1 1 - Exam GENERAL EXAM: Alert, obese, pleasant 51-year-old female, , comfortable in no apparent distress. The patient is currently on room air oxygen HEAD: Normocephalic. EYES: Normal reaction of pupils, equal size. NOSE: Clear with pink turbinates. THROAT: No erythema or exudates. NECK: No masses, no JVD. CHEST: No chest wall deformity. LUNGS: Equal air entry with no crackles, wheeze, rhonchi or dullness. CVS: S1 and S2 normal with no audible murmur, regular rhythm. ABDOMEN: No hepatosplenomegaly, normal bowel sounds, no guarding or rigidity. SPINE: No scoliosis or deformity SKIN: No rashes CENTRAL NERVOUS SYSTEM: No focal deficits, tone is normal in all 4 extremities. EXTREMITIES: There is 1+ peripheral edema. No clubbing, no cyanosis. Peripheral pulses are intact. - Labs CBC & Chem 7: 09/26/21 08:21 09/26/21 08:21 Labs: Abnormal Lab Results - Last 24 Hours (Table) 09/26/21 09/26/21 09/27/21 Range/Units 16:39 20:25 06:01 POC Glucose (mg/dL) 120 H 171 H 124 H (70-110) mg/dL Assessment and Plan Plan: Acute bilateral pulmonary embolism with RV dilatation and strain, the patient completed EKOS and the patient remains hemodynamically stable. The patient will be changed from out of the intensive care unit today. The patient to be started on Eliquis. This is an unprovoked event. The patient continues to be on Eliquis. The patient is currently on room air oxygen. Right lower extremity DVT Acute shortness of breath secondary to above, recovered Acute hypoxic respiratory failure, recovered and the patient is currently on room air oxygen Morbid obesity with BMI 51.7 Previous history of smoking Degenerative arthritis Sedentary lifestyle Previous history of COVID 19 infection back in January 2021 Plan Continue long-term and to coagulation with Eliquis 10 mg by mouth twice a day as a start and those will be dropped down to 5 mg by mouth twice a day in one week's time. Increase mobility as tolerated Watch for any signs of bleeding The workup has been completed and echocardiogram is been noted We'll continue to follow, possible discharge home today
--- NOTE | 2021-09-27 13:48 | P.PN ---
Subjective Progress Note Date: 09/26/21 51-year-old female with a known history of osteoarthritis, GERD, morbid obesity and prior history of smoking presents to ER with the complaints of worsening shortness of breath for the past 2 weeks. Patient has been having exertional dyspnea and also shortness of breath when lying down. Patient also felt tightness and pressure like sensation with inspiration. Denied any complaints of fever or chills. No nausea or vomiting. No abdominal pain or vomiting. No diarrhea. Denied any recent illnesses. No recent travel. Patient felt dizzy and lightheaded. Patient did have COVID-19 infection in January 2021. For the last couple of months patient has not been moving well much due to bilateral knee pain and patient does have chronic lower extremity swelling. Denied any leg pain. Chest x-ray showed no acute cardiopulmonary process. CT angiogram of the chest showed bilateral pulmonary embolus findings suggestive of right ventricular strain and pulmonary artery hypertension. EKG showed sinus tachycardia. On admission patient was tachycardic and tachypneic and pulse ox 94% on room air. Blood pressure 134/83. Laboratory test showed WBC 9.9 hemoglobin 14.7 platelets 194 D-dimer 7.71 and Sodium 139 potassium 4.5 chloride 108 bicarb is 20 BUN 19 and creatinine 0.76 and blood sugar is 154 AST 100 ALT 80 and alk phos 185 and troponin 0.066 and 0.056 and 0.051 proBNP 3040 Coronavirus PCR not detected. Objective - Vital Signs Vital signs: Vital Signs Temp 97.6 F 09/26/21 12:06 Pulse 83 09/26/21 12:06 Resp 16 09/26/21 12:06 BP 123/90 09/26/21 12:06 Pulse Ox 93 L 09/26/21 12:06 FiO2 Intake & Output 09/25/21 09/26/21 09/26/21 18:59 06:59 18:59 Intake Total 1755 Output Total 475 Balance 1280 Intake: Intake, IV Titration 395 Amount Heparin Sod,Pork in 0.45% 10 NaCl 25,000 unit In 0.45 % NaCl 1 250ml.bag @ 2.5 mls/hr IV .Q24H DANIELLE Rx#: [id number] Sodium Chloride 0.9% 1, 140 000 ml @ 35 mls/hr IV . Q24H DANIELLE Rx#:[id number] Sodium Chloride 0.9% 1, 140 000 ml @ 35 mls/hr IV . Q24H DANIELLE Rx#:[id number] Sodium Chloride 0.9% 1, 105 000 ml @ 35 mls/hr IV . Q24H DANIELLE Rx#:[id number] Oral 1360 Output: Urine 475 Other: # Voids 1 1 1 - Exam Patient is lying in the bed comfortably, no acute distress, awake alert and oriented.. Morbidly obese. HEENT: Normocephalic. Neck is supple. Pupils reactive. Nostrils clear. Oral cavity is moist. Neck reveals no JVD, carotid bruits, or thyromegaly. CHEST EXAMINATION: Trachea is central. Symmetrical expansion. Lung andres clear to auscultation and percussion. CARDIAC: Normal S1, S2 with no gallops. No murmurs ABDOMEN: Soft. Bowel sounds present. Nontender. No organomegaly. No abdominal bruits. Extremities: Bilateral lower extremity swelling 2+. No clubbing or cyanosis Neurologically awake, alert, oriented x3 with well-coordinated movements. No focal deficits noted Skin: No rash or skin lesions. Psychiatric: Coperative. Nonsuicidal, anxious. Musculoskeletal: No joint swelling or deformity. Normal range of motion. - Labs CBC & Chem 7: 09/26/21 08:21 09/26/21 08:21 Labs: Abnormal Lab Results - Last 24 Hours (Table) 09/26/21 09/26/21 Range/Units 08:21 08:21 Plt Count 144 L (150-450) k/uL Sodium 136 L (137-145) mmol/L Carbon Dioxide 20 L (22-30) mmol/L Glucose 165 H (74-99) mg/dL Calcium 8.3 L (8.4-10.2) mg/dL AST 41 H (14-36) U/L ALT 51 H (4-34) U/L Alkaline Phosphatase 154 H (38-126) U/L Assessment and Plan Assessment: Acute bilateral pulmonary embolism with evidence of right ventricular strain and pulmonary artery hypertension as per CTA chest. Etiology likely due to sedentary lifestyle. Patient is status post EKOS procedure. Right lower extremity DVT Mild transaminitis, improving Elevated troponin level likely due to right ventricular strain. History of COVID-19 infection in January 2021 GERD Osteoarthritis of the bilateral knees Previous history of smoking Morbid obesity with BMI 51.6 DVT prophylaxis: Eliquis GI prophylaxis: Pepcid Plan: Patient will continue to be monitored in the intensive care unit overnight. She is status post EKOS procedure and is being followed closely by vascular services. She has been started on eliquis and also pepcid added for GI prophylaxis. She is also being followed by cardiology and will follow up in the office on discharge. Continue with home medications and follow-up closely. Prognosis is guarded.
--- NOTE | 2021-09-27 18:00 | PN ---
PROGRESS NOTE FOLLOW-UP NOTE: This is a 51-year-old lady admitted to hospital with bilateral pulmonary embolism, underwent EKOS and is currently on Eliquis, free of cardiac symptoms. Hopefully home tomorrow. On exam, comfortable at rest. Vital signs are stable. Chest exam reveals good air entry bilaterally. Heart exam reveals first and second heart sounds. No gallop. No murmur. Abdomen is soft. Examination of extremities did not reveal any edema. Peripheral pulses are felt. Labs show a hemoglobin of 13.3, platelet count is 144, potassium is 4.3, creatinine is 0.7. ASSESSMENT: Acute bilateral pulmonary embolism. PLAN: Patient is doing well. Continue current medications. Home tomorrow. MMODL / IJN: [id number] /
[2021-09-28] MEDS: APIXABAN 5 MG TAB PO SCH ×2 (07:50→20:03)
[2021-09-28] MEDS: LIDOCAINE 5% PATCH TOPICAL SCH (07:51)
[2021-09-28] MEDS: FAMOTIDINE 20 MG TAB PO SCH ×2 (07:51→20:03)
--- NOTE | 2021-09-28 11:48 | P.PN ---
Subjective Progress Note Date: 09/28/21 51-year-old obese female patient has been experiencing progressive increase in shortness of breath over the past 3 weeks. The patient furthermore to care with trip to [place]. The patient came into the emergency experiencing dyspnea. No pleurisy. No hemoptysis. Chest her chest was tight and she did have some vague discomfort with deep breathing. In any rate, the patient will further investigated. Doppler of the lower extremity showed a nonocclusive DVT involving the right [place]lite[place] the patient also had a CT angiogram that showed multiple bilateral pulmonary emboli and RV strain. Echocardiogram showed LV function being at 55%. There was moderate RV dilatation. Pulmonary artery pressures were not estimated because of the patient's body habitus. The patient was started on IV heparin. She was admitted intensive care unit. The patient did not require any oxygen. She was on 4 L of oxygen nasal cannula. She was seen by vascular surgery and she underwent EKOS therapy overnight and the patient completed the treatment this morning. Catheter or the been removed. She is calm and comfortable and she remains hemodynamically stable and she has no evidence of any bleeding. The patient's reports no previous DVTs or pulmonary emboli. No personal or family history of any DVT or PE. She has no previous history of hypercoagulability. No history of any malignancy. Most of any orthopedic surgery. She is obese and she seems to be quite sedentary in her lifestyle.The patient has a white cell count of 9.7 with hemoglobin 13.5. D- dimer was obviously elevated. Electrodes are all within normal limits. Normal renal function. She was already started on Eliquis today 10 mg by mouth twice a day. The patient is seen today 09/26/2021 in follow-up on the selective care unit. She is currently sitting up in a chair at the bedside. Awake and alert in no acute distress. She is maintaining good O2 saturations in the 90s on room air. Afebrile. Hemodynamically stable. White count 8.6. Hemoglobin 13.3. Platelets 144. Sodium 136. Potassium 4.3. Bicarb 20. BUN 14. Creatinine 0.73. Glucose 165. AST 41. ALT 51. She is converted to oral anticoagulant form of Eliquis. 09/27/2021, the patient has no specific complaints and the patient is currently on room air oxygen and the patient is receiving anticoagulation with Eliquis 10 mg by mouth twice a day. She is ambulating. No blood work from today. Nevertheless, the patient has not shown any side effects or bleeding complications from Eliquis. No pleurisy. No hemoptysis. 09/28/2021, no new issues. She has some exertional dyspnea. She is on room air oxygen. She is on to coagulation. No bleeding. She remains on Lipitor 10 mg twice a day. Objective - Vital Signs Vital signs: Vital Signs Temp 97.8 F 09/28/21 07:43 Pulse 90 09/28/21 07:43 Resp 15 09/28/21 07:43 BP 114/68 09/28/21 07:43 Pulse Ox 92 L 09/28/21 07:43 FiO2 Intake & Output 09/27/21 09/28/21 09/28/21 18:59 06:59 18:59 Intake Total 1495 240 118 Balance 1495 240 118 Weight 170.4 kg Intake: Oral 1495 240 118 Other: Voiding Method Toilet # Voids 1 1 - Exam GENERAL EXAM: Alert, obese, pleasant 51-year-old female, , comfortable in no apparent distress. The patient is currently on room air oxygen HEAD: Normocephalic. EYES: Normal reaction of pupils, equal size. NOSE: Clear with pink turbinates. THROAT: No erythema or exudates. NECK: No masses, no JVD. CHEST: No chest wall deformity. LUNGS: Equal air entry with no crackles, wheeze, rhonchi or dullness. CVS: S1 and S2 normal with no audible murmur, regular rhythm. ABDOMEN: No hepatosplenomegaly, normal bowel sounds, no guarding or rigidity. SPINE: No scoliosis or deformity SKIN: No rashes CENTRAL NERVOUS SYSTEM: No focal deficits, tone is normal in all 4 extremities. EXTREMITIES: There is 1+ peripheral edema. No clubbing, no cyanosis. Peripheral pulses are intact. - Labs CBC & Chem 7: 09/26/21 08:21 09/26/21 08:21 Assessment and Plan Assessment: Acute bilateral pulmonary embolism with RV dilatation and strain without acute cor pulmonale, the patient completed EKOS and the patient remains hemodynamically stable. Stable and on room air. The patient was started on Eliquis. This is an unprovoked event Right lower extremity DVT, initiated on Eliquis Acute shortness of breath secondary to above Acute hypoxic respiratory failure secondary to above, recovered and on room air Morbid obesity with BMI 51.7 Previous history of smoking Degenerative arthritis Sedentary lifestyle Previous history of COVID 19 infection back in January 2021 Plan Increased mobility Continue anticoagulation Discharge planning
--- NOTE | 2021-09-28 14:36 | P.PN ---
Subjective Progress Note Date: 09/27/21 51-year-old female with a known history of osteoarthritis, GERD, morbid obesity and prior history of smoking presents to ER with the complaints of worsening shortness of breath for the past 2 weeks. Patient has been having exertional dyspnea and also shortness of breath when lying down. Patient also felt tightness and pressure like sensation with inspiration. Denied any complaints of fever or chills. No nausea or vomiting. No abdominal pain or vomiting. No diarrhea. Denied any recent illnesses. No recent travel. Patient felt dizzy and lightheaded. Patient did have COVID-19 infection in January 2021. For the last couple of months patient has not been moving well much due to bilateral knee pain and patient does have chronic lower extremity swelling. Denied any leg pain. Chest x-ray showed no acute cardiopulmonary process. CT angiogram of the chest showed bilateral pulmonary embolus findings suggestive of right ventricular strain and pulmonary artery hypertension. EKG showed sinus tachycardia. On admission patient was tachycardic and tachypneic and pulse ox 94% on room air. Blood pressure 134/83. Laboratory test showed WBC 9.9 hemoglobin 14.7 platelets 194 D-dimer 7.71 and Sodium 139 potassium 4.5 chloride 108 bicarb is 20 BUN 19 and creatinine 0.76 and blood sugar is 154 AST 100 ALT 80 and alk phos 185 and troponin 0.066 and 0.056 and 0.051 proBNP 3040 Coronavirus PCR not detected. 09/27/2021 the patient is seen and evaluated sitting up in bedside chair; patient has no specific complaints and the patient is currently on room air oxygen -- the patient is receiving anticoagulation with Eliquis 10 mg by mouth twice a day. She is ambulating. No blood work from today. Vital signs are reviewed and remained stable with temperature of 97.8, pulse 80, respiration 15 and blood pressure 114/68 Patient is recommended to continue with oral anticoagulation and monitor closely for any signs of bleeding; possible discharge in next 24 hours if remains stable Objective - Vital Signs Vital signs: Vital Signs Temp 98.0 F 09/27/21 12:28 Pulse 81 09/27/21 12:28 Resp 15 09/27/21 12:28 BP 142/97 09/27/21 12:28 Pulse Ox 95 09/27/21 12:28 FiO2 Intake & Output 09/26/21 09/27/21 09/27/21 18:59 06:59 18:59 Intake Total 786 Balance 786 Weight 170.4 kg Intake: Oral 786 Other: # Voids 1 1 - Exam Patient is lying in the bed comfortably, no acute distress, awake alert and oriented.. Morbidly obese. HEENT: Normocephalic. Neck is supple. Pupils reactive. Nostrils clear. Oral cavity is moist. Neck reveals no JVD, carotid bruits, or thyromegaly. CHEST EXAMINATION: Trachea is central. Symmetrical expansion. Lung andres clear to auscultation and percussion. CARDIAC: Normal S1, S2 with no gallops. No murmurs ABDOMEN: Soft. Bowel sounds present. Nontender. No organomegaly. No abdominal bruits. Extremities: Bilateral lower extremity swelling 2+. No clubbing or cyanosis Neurologically awake, alert, oriented x3 with well-coordinated movements. No focal deficits noted Skin: No rash or skin lesions. Psychiatric: Coperative. Nonsuicidal, anxious. Musculoskeletal: No joint swelling or deformity. Normal range of motion. - Labs CBC & Chem 7: 09/26/21 08:21 09/26/21 08:21 Labs: Abnormal Lab Results - Last 24 Hours (Table) 09/26/21 09/26/21 09/27/21 Range/Units 16:39 20:25 06:01 POC Glucose (mg/dL) 120 H 171 H 124 H (70-110) mg/dL Assessment and Plan Assessment: Acute bilateral pulmonary embolism with evidence of right ventricular strain and pulmonary artery hypertension as per CTA chest. Etiology likely due to sedentary lifestyle. Patient is status post EKOS procedure. Right lower extremity DVT Mild transaminitis, improving Elevated troponin level likely due to right ventricular strain. History of COVID-19 infection in January 2021 GERD Osteoarthritis of the bilateral knees Previous history of smoking Morbid obesity with BMI 51.6 DVT prophylaxis: Eliquis GI prophylaxis: Pepcid Plan: Patient will continue to be monitored in the intensive care unit overnight. She is status post EKOS procedure and is being followed closely by vascular services. She has been started on eliquis and also pepcid added for GI prophylaxis. She is also being followed by cardiology and will follow up in the office on discharge. Continue with home medications and follow-up closely. Prognosis is guarded.
--- NOTE | 2021-09-28 14:39 | P.DS ---
Providers Date of admission: 09/24/21 10:01 Expected date of discharge: 09/28/21 Attending physician: Racheal Castro Consults: 09/24/21 09:58 Consult Physician Routine Consulting Provider: [facility] Consult Reason/Comments: elevated troponin, bnp. bilat PE Do you want consulting provider notified?: Yes Consult Physician Stat Consulting Provider: Abebe Cox Consult Reason/Comments: PE, concern for right heart strain, possible ekos Do you want consulting provider notified?: Already Contacted 09/25/21 07:45 Consult Physician Routine Consulting Provider: Estefany Weber Consult Reason/Comments: ICU management Do you want consulting provider notified?: Already Contacted Primary care physician: [facility] Course: 51-year-old female with a known history of osteoarthritis, GERD, morbid obesity and prior history of smoking presents to ER with the complaints of worsening shortness of breath for the past 2 weeks. Patient has been having exertional dyspnea and also shortness of breath when lying down. Patient also felt tightness and pressure like sensation with inspiration. Denied any complaints of fever or chills. No nausea or vomiting. No abdominal pain or vomiting. No diarrhea. Denied any recent illnesses. No recent travel. Patient felt dizzy and lightheaded. Patient did have COVID-19 infection in January 2021. For the last couple of months patient has not been moving well much due to bilateral knee pain and patient does have chronic lower extremity swelling. Denied any leg pain. Chest x-ray showed no acute cardiopulmonary process. CT angiogram of the chest showed bilateral pulmonary embolus findings suggestive of right ventricular strain and pulmonary artery hypertension. EKG showed sinus tachycardia. On admission patient was tachycardic and tachypneic and pulse ox 94% on room air. Blood pressure 134/83. Laboratory test showed WBC 9.9 hemoglobin 14.7 platelets 194 D-dimer 7.71 and Sodium 139 potassium 4.5 chloride 108 bicarb is 20 BUN 19 and creatinine 0.76 and blood sugar is 154 AST 100 ALT 80 and alk phos 185 and troponin 0.066 and 0.056 and 0.051 proBNP 3040 Coronavirus PCR not detected. 09/27/2021 the patient is seen and evaluated sitting up in bedside chair; patient has no specific complaints and the patient is currently on room air oxygen -- the patient is receiving anticoagulation with Eliquis 10 mg by mouth twice a day. She is ambulating. No blood work from today. Vital signs are reviewed and remained stable with temperature of 97.8, pulse 80, respiration 15 and blood pressure 114/68 Patient is recommended to continue with oral anticoagulation and monitor closely for any signs of bleeding; possible discharge in next 24 hours if remains stable 09/28/2021 Patient is stable and cleared for discharge from pulmonary service on oral anticoagulation Patient Condition at Discharge: Serious Plan - Discharge Summary Discharge Rx Participant: No New Discharge Prescriptions: New Apixaban [Eliquis Starter Pack (for VTE)] 5 - 10 mg PO DIRECTED 30 Days #1 each Continue Acetaminophen [Tylenol Arthritis] 650 mg PO Q8H PRN PRN Reason: Pain Discontinued Ibuprofen [Motrin] 800 mg PO Q8H PRN PRN Reason: Pain Diclofenac Sodium [Voltaren] 75 mg PO BID PRN PRN Reason: knee pain Discharge Medication List Acetaminophen [Tylenol Arthritis] 650 mg PO Q8H PRN 09/24/21 [History] Apixaban [Eliquis Starter Pack (for VTE)] 5 - 10 mg PO DIRECTED 30 Days #1 each 09/25/21 [Rx] Follow up Appointment(s)/Referral(s): Nathanael Duran MD [STAFF PHYSICIAN] - 2 Weeks Valorie Bertrand DO [Primary Care Provider] - 1-2 days
[2021-09-28 16:29] VITALS: RESP 16
--- NOTE | 2021-09-28 16:52 | PN ---
PROGRESS NOTE FOLLOW-UP NOTE: This 51-year-old lady is admitted to hospital with acute large pulmonary embolism. She underwent EKOS and is currently on anticoagulant, doing well. She still has mild shortness of breath with activity, but much improved. On exam, comfortable at rest. Vital signs are stable. There is no jugular venous distention. Chest exam reveals good air entry bilaterally. Heart exam reveals first and second heart sounds. No gallop. Examination of extremities did not reveal any edema. Labs show a hemoglobin of 13.3, potassium is 4.3, creatinine is 0.7. ASSESSMENT AND PLAN: Acute pulmonary embolism, status post EKOS and medications, doing well. Continue current medications. Home today and follow up with us in the office. MMODL / IJN: [id number] /
[2021-09-29] MEDS: FAMOTIDINE 20 MG TAB PO SCH ×2 (09:42→21:22)
[2021-09-29] MEDS: APIXABAN 5 MG TAB PO SCH ×2 (09:42→21:22)
[2021-09-29] MEDS: LIDOCAINE 5% PATCH TOPICAL SCH (09:44)
--- NOTE | 2021-09-29 10:15 | P.PN ---
Subjective Progress Note Date: 09/29/21 Principal diagnosis: Pulmonary embolism Patient seen and examined follow-up for pulmonary embolism status post EKOS procedure last week. She states her breathing has improved. She was planning on discharge yesterday, however after they removed her IV she noticed that she had some swelling and redness. Have consulted infectious disease for possible cellulitis. Patient does state that the area is warm and red with swelling. She has been afebrile. She is not requiring any oxygen supplement. Her oxygen saturation is 94% on room air. Objective - Vital Signs Vital signs: Vital Signs Temp 98.4 F 09/29/21 04:00 Pulse 74 09/29/21 04:00 Resp 16 09/29/21 04:00 BP 116/78 09/29/21 04:00 Pulse Ox 94 L 09/29/21 04:00 FiO2 Intake & Output 09/28/21 09/29/21 09/29/21 18:59 06:59 18:59 Intake Total 904 10 Balance 904 10 Intake: IV 10 Invasive Line 4 10 Oral 904 Other: Voiding Method Toilet # Voids 1 0 - Exam General appearance: The patient is alert, oriented, appears in no acute distress. Obese. HET: Head is normocephalic and atraumatic. Pupils are equal and reactive. Neck: Supple without lymphadenopathy. Trachea midline. Heart: S1 S2. Regular rate and rhythm. Lungs: Clear to auscultation bilaterally. Abdomen: Soft, nontender, nondistended. Extremities: Left antecubital region where prior IV site was located noted with redness, induration, and tenderness. Patient has palpable radial pulse. She has full range of motion of her left upper extremity. Neurological: No focal deficits. Strength and sensation are grossly intact. - Labs CBC & Chem 7: 09/26/21 08:21 09/26/21 08:21 Assessment and Plan Assessment: 1. Bilateral pulmonary embolism with right heart strain status post EKOS proce dure 2. Right lower extremity deep vein thrombosis 3. Shortness of breath 4. Morbid obesity 5. Left upper extremity superficial thrombus Plan: 1. Continue anticoagulation 2. Encourage ambulation 3. Continue medical management 4. Left upper extremity ultrasound ordered 5. Elevate left upper extremity, apply warm compress. There is no indication for any surgical intervention. Thank you for this consultation, patient is cleared from vascular surgery for discharge. We'll sign off at this time. The impression and plan of care has been dictated as directed. Dr. Cox I performed a history and examination of this patient, discussed the same with the dictator. I agree with the dictator's note ,documented as a scribe. Any additional findings or plans will be noted.
--- NOTE | 2021-09-29 10:19 | US ---
EXAMINATION TYPE: US venous doppler duplex UE LT DATE OF EXAM: 09/29/2021 COMPARISON: NONE CLINICAL HISTORY: swelling at prior IV site. SIDE PERFORMED: Left Technically difficult. Gross morbid obesity. Left Arm: Negative for DVT. Some of the imaging is limited given significant technical limitations i ncluding morbid obesity and ability to position. No definite thrombus could be documented. Some areas are limited, such as subclavian vein, in terms of being able to document a clear vessel. There is a superficial thrombus at site of redness, this does not appear to be in the basilic vein. IMPRESSION: 1. Left upper extremity ultrasound appears negative for deep venous thrombosis. Exam however is very limited. 2. Some superficial thrombus appears to be present.
[2021-09-29 17:22] LABS: Basophils # (A) 0.1 k/uL (0-0.2); Basophils % (A) 1 %; Eosinophils # (A) 0.3 k/uL (0-0.7); Eosinophils % (A) 4 %; HCT 46.4 % (34.0-46.0); HGB 15.1 gm/dL (11.4-16.0); Lymphocytes # (A) 2.7 k/uL (1.0-4.8); Lymphocytes % (A) 38 %; MCHC 32.6 g/dL (31.0-37.0); MCV 91.8 fL (80.0-100.0); Mean Platelet Volume 9.7; Monocytes # (A) 0.5 k/uL (0-1.0); Monocytes % (A) 7 %; Neutrophils # (A) 3.4 k/uL (1.3-7.7); Neutrophils % (A) 48 %; Platelet Count 211 k/uL (150-450); RBC 5.05 m/uL (3.80-5.40); RDW 13.9 % (11.5-15.5)
--- NOTE | 2021-09-29 19:44 | P.PN ---
Subjective Progress Note Date: 09/29/21 Patient is a 51-year-old female with a known history of osteoarthritis, GERD, morbid obesity and prior history of smoking presents to ER with the complaints of worsening shortness of breath for the past 2 weeks. Patient has been having exertional dyspnea and also shortness of breath when lying down. Patient also felt tightness and pressure like sensation with inspiration. Denied any complaints of fever or chills. No nausea or vomiting. No abdominal pain or vomiting. No diarrhea. Denied any recent illnesses. No recent travel. Patient felt dizzy and lightheaded. Patient did have COVID-19 infection in January 2021. For the last couple of months patient has not been moving well much due to bilateral knee pain and patient does have chronic lower extremity swelling. Denied any leg pain. Chest x-ray showed no acute cardiopulmonary process. CT angiogram of the chest showed bilateral pulmonary embolus findings suggestive of right ventricular strain and pulmonary artery hypertension. EKG showed sinus tachycardia. On admission patient was tachycardic and tachypneic and pulse ox 94% on room air. Blood pressure 134/83. Laboratory test showed WBC 9.9 hemoglobin 14.7 platelets 194 D-dimer 7.71 and Sodium 139 potassium 4.5 chloride 108 bicarb is 20 BUN 19 and creatinine 0.76 and blood sugar is 154 AST 100 ALT 80 and alk phos 185 and troponin 0.066 and 0.056 and 0.051 proBNP 3040 Coronavirus PCR not detected. 09/25/2021 Patient evaluated today in the intensive care unit. She is status post EKOS procedure. Continues on 4L nasal cannula, she does report mild shortness of breath today. Femoral puncture site intact, approximated. She has been started on eliquis protocol today. Patient does use diclofenac and motrin as needed at home, which are discontinued. Will order lidocaine patch for chronic pain and patient can continue on tylenol as needed. She is agreeing with this plan. White count today 9.7, glucose 116. Liver enzymes remain elevated but tending down. She is afebrile, heart rate 92, blood pressure 114/80, 93% room air. 09/29/2021 Patient continues to be monitored on stepdown unit status post EKOS. Continues on eliquis. She is weaned to room air. She does have a hardened area in her left AC from an IV site and concern for cellulitis. She is seeing infectious disease for this and continues on IV cefazolin. No white count today 7.0, procalcitonin is negative at 0.9. CRP is elevated at 2.4. She is afebrile. Plan to continue antibiotics overnight and re evaluate tomorrow. Review of Systems Constitutional: Denied any fatigue denied any fever. Cardio vascular: denied any chest pain, palpitations Gastrointestinal: denied any nausea, vomiting, diarrhea Pulmonary: Denies cough, denies shortness of breath Neurologic denied any new focal deficits All inpatient medications were reviewed and appropriate changes in these medications as dictated in the interval history and assessment and plan. PHYSICAL EXAMINATION: Patient is lying in the bed comfortably, no acute distress, awake alert and oriented.. Morbidly obese. HEENT: Normocephalic. Neck is supple. Pupils reactive. Nostrils clear. Oral cavity is moist. Neck reveals no JVD, carotid bruits, or thyromegaly. CHEST EXAMINATION: Trachea is central. Symmetrical expansion. Lung andres clear to auscultation and percussion. CARDIAC: Normal S1, S2 with no gallops. No murmurs ABDOMEN: Soft. Bowel sounds present. Nontender. No organomegaly. No abdominal bruits. Extremities: Bilateral lower extremity swelling 2+. No clubbing or cyanosis Neurologically awake, alert, oriented x3 with well-coordinated movements. No focal deficits noted Skin: No rash or skin lesions. Local erythema and swelling tenderness to left AC fossa. Psychiatric: Coperative. Nonsuicidal, anxious. Musculoskeletal: No joint swelling or deformity. Normal range of motion. Assessment and Plan Assessment Acute bilateral pulmonary embolism with evidence of right ventricular strain and pulmonary artery hypertension as per CTA chest. Etiology likely due to sedentary lifestyle. Patient is status post EKOS procedure. Right lower extremity DVT Mild transaminitis stable Elevated troponin level likely due to right ventricular strain. History of COVID-19 infection in January 2021 GERD Osteoarthritis of the bilateral knees Previous history of smoking Morbid obesity with BMI 51.6 DVT prophylaxis: Eliquis GI prophylaxis: Pepcid Plan: Patient is status post EKOS and continues on eliquis. She is weaned off oxygen and today reports her breathing feels normal. Concern for cellulitis from IV site in the left AC fossa. Patient was evaluated today by infectious disease recommending to continue on IV cefazolin and will follow up tomorrow. Discharge on hold. The impression and plan of care has been dictated by Rin Dupree, Nurse Practitioner as directed. Dr. Kori MD I have performed a history and physical examination and medical decision making of this patient, discussed the same with the dictator, and agree with the dictators assessment and plan as written, documented as a scribe. Based on total visit time, I have performed more than 50% of this visit. Objective - Vital Signs Vital signs: Vital Signs Temp 97.7 F 09/29/21 12:00 Pulse 85 09/29/21 16:00 Resp 16 09/29/21 16:00 BP 134/87 09/29/21 16:00 Pulse Ox 95 09/29/21 16:00 FiO2 Intake & Output 09/28/21 09/29/21 09/29/21 18:59 06:59 18:59 Intake Total 904 10 50 Balance 904 10 50 Intake: IV 10 Invasive Line 4 10 Intake, IV Titration 50 Amount ceFAZolin 2 gm In Sodium 50 Chloride 0.9% 50 ml @ 100 mls/hr IVPB Q8HR [facility] Rx# :[id number] Oral 904 Other: Voiding Method Toilet # Voids 1 0 - Labs CBC & Chem 7: 09/29/21 17:04 09/26/21 08:21 Assessment and Plan Time with Patient: Less than 30
--- NOTE | 2021-09-29 22:26 | P.CONS ---
History of Present Illness - Reason for Consult Consult date: 09/29/21 - History of Present Illness Patient is a 51-year female presenting to the hospital about 5 days ago with a 2-week history of progressive worsening shortness of breath especially with exertion and also Patient also having increasing swelling to lower extremity, patient did have a chest x-ray that was negative for acute cardiopulmonary process CT angiogram of the chest bilateral pulmonary embolus finding suggestive of some right ventricular strain and pulmonary artery hypertension lower extremity Doppler with concern for possible right leg DVT negative on the left side has been evaluated by vascular surgery and is status post mechanical thrombolysis with EKOS with the procedure completed on 09/24/2021 patient did have a left arm IV placed on admission and yesterday the patient noticed to have increasing pain and swelling to the left antecubital fossa peripheral IV site which was discontinued patient was noticed to have significant swelling redness and the patient was describing the pain to be more of a sharp 5-6 out of 10 and no radiation patient did have left upper extremity Doppler that was negative for DVT however did show some superficial thrombosis with concern for cellulitis the patient was started on cefazolin discharge was put on hold infectious disease was consulted for further management of antibiotic therapy as of this morning the patient is afebrile still having swelling redness to the left antecubital fossa no worsening pain no notable wound or any drainage no abdominal pain no diarrhea Past Medical History Past Medical History: GERD/Reflux, Osteoarthritis (OA), Pneumonia Additional Past Medical History / Comment(s): Pneumonia twice, UTI once, newly diagnosed with arthritis bilateral knees, pt had covid 01/2021 History of Any Multi-Drug Resistant Organisms: None Reported Additional Past Surgical History / Comment(s): D&C x2 Past Anesthesia/Blood Transfusion Reactions: No Reported Reaction Smoking Status: Former smoker - Past Family History Mother Family Medical History: No Reported History Additional Family Medical History / Comment(s): Mother is healthy Father Family Medical History: Hyperlipidemia, Hypertension Medications and Allergies Home Medications Medication Instructions Recorded Confirmed Type Acetaminophen [Tylenol Arthritis] 650 mg PO Q8H PRN 09/24/21 09/24/21 History Apixaban [Eliquis Starter Pack 5 - 10 mg PO DIRECTED 30 Days 09/25/21 Rx (for VTE)] #1 each Cephalexin [Keflex] 500 mg PO Q8HR 7 Days #21 cap 09/29/21 Rx Famotidine [Pepcid] 20 mg PO DAILY #30 tablet 09/29/21 Rx Allergies Allergy/AdvReac Type Severity Reaction Status Date / Time No Known Allergies Allergy Verified 09/24/21 10:29 Physical Exam Vitals: Vital Signs Temp Pulse Resp BP Pulse Ox 09/29/21 08:00 97.8 F 89 16 120/80 92 L 09/29/21 04:00 98.4 F 74 16 116/78 94 L 09/29/21 00:31 98.7 F 92 16 115/76 98 09/28/21 20:05 98.6 F 98 16 146/88 98 09/28/21 16:24 99.6 F 87 16 139/89 97 09/28/21 11:43 97.9 F 91 18 135/83 Intake and Output 09/28/21 09/29/21 09/29/21 22:59 06:59 14:59 Intake Total 678 50 Balance 678 50 Intake: IV 10 Invasive Line 4 10 Intake, IV Titration 50 Amount ceFAZolin 2 gm In Sodium 50 Chloride 0.9% 50 ml @ 100 mls/hr IVPB Q8HR [facility] Rx# :[id number] Oral 668 Other: Voiding Method Toilet Toilet # Voids 0 Results CBC & Chem 7: 09/29/21 17:04 09/26/21 08:21 Assessment and Plan Plan: 1patient with left upper extremity IV site phlebitis and concern for possible cellulitis not behaving as a septic phlebitis as the patient currently not running any fever and white count has been normal. 2we will zoe the area of the redness and induration. 3patient was to keep the area elevated and apply cold compression. 4blood cultures will be obtained to rule out septic phlebitis. 5continue with empiric cefazolin while waiting for the culture to finalize. We will follow on clinical condition and cultures to further adjust medication if needed Thank you for this consultation will follow this patient along with you Time with Patient: Greater than 30
[2021-09-30 08:22] LABS: Basophils # (A) 0.1 k/uL (0-0.2); Basophils % (A) 1 %; Eosinophils # (A) 0.3 k/uL (0-0.7); Eosinophils % (A) 3 %; HCT 46.2 % (34.0-46.0); HGB 14.6 gm/dL (11.4-16.0); Lymphocytes # (A) 3.1 k/uL (1.0-4.8); Lymphocytes % (A) 34 %; MCH 29.1 pg (25.0-35.0); MCHC 31.5 g/dL (31.0-37.0); MCV 92.3 fL (80.0-100.0); Mean Platelet Volume 9.9; Monocytes # (A) 0.5 k/uL (0-1.0); Monocytes % (A) 6 %; Neutrophils # (A) 4.8 k/uL (1.3-7.7); Neutrophils % (A) 54 %; Platelet Count 226 k/uL (150-450); RBC 5.01 m/uL (3.80-5.40); RDW 13.7 % (11.5-15.5)
[2021-09-30] MEDS: LIDOCAINE 5% PATCH TOPICAL SCH (08:52)
[2021-09-30] MEDS: APIXABAN 5 MG TAB PO SCH (08:53)
[2021-09-30] MEDS: FAMOTIDINE 20 MG TAB PO SCH (08:53)
[2021-09-30 10:08] VITALS: TEMP 98.2
[2021-09-30 12:06] VITALS: BP 112/76; PULSE 82
--- NOTE | 2021-09-30 23:34 | P.DS ---
Providers Date of admission: 09/24/21 10:01 Attending physician: Racheal Castro Consults: 09/24/21 09:58 Consult Physician Routine Consulting Provider: [facility] Consult Reason/Comments: elevated troponin, bnp. bilat PE Do you want consulting provider notified?: Yes Consult Physician Stat Consulting Provider: Abebe Cox Consult Reason/Comments: PE, concern for right heart strain, possible ekos Do you want consulting provider notified?: Already Contacted 09/25/21 07:45 Consult Physician Routine Consulting Provider: Estefany Weber Consult Reason/Comments: ICU management Do you want consulting provider notified?: Already Contacted 09/28/21 20:27 Consult Physician Routine Consulting Provider: Willard Blair Consult Reason/Comments: Possible cellulitis Do you want consulting provider notified?: Yes Primary care physician: Valorie Bertrand Hospital Course: Diagnosis Acute bilateral pulmonary embolism with evidence of right ventricular strain and pulmonary artery hypertension as per CTA chest. Etiology likely due to sedentary lifestyle. Patient is status post EKOS procedure. Right lower extremity DVT Mild transaminitis stable Elevated troponin level likely due to right ventricular strain. Hyperglycemia recommend outpatient A1C History of COVID-19 infection in January 2021 GERD Osteoarthritis of the bilateral knees Previous history of smoking Morbid obesity with BMI 51.6 Full Code Discharge Disposition Patient is stable for discharge cleared by pulmonary and infectious disease services. She will be discharge on oral eliquis. Recommend to discontinue motrin as needed and diclofenac. Hospital Course 51-year-old female with a known history of osteoarthritis, GERD, morbid obesity and prior history of smoking presents to ER with the complaints of worsening shortness of breath for the past 2 weeks. Patient has been having exertional dyspnea and also shortness of breath when lying down. Patient also felt tightness and pressure like sensation with inspiration. Denied any complaints of fever or chills. No nausea or vomiting. No abdominal pain or vomiting. No diarrhea. Denied any recent illnesses. No recent travel. Patient felt dizzy and lightheaded. Patient did have COVID-19 infection in January 2021. For the last couple of months patient has not been moving well much due to bilateral knee pain and patient does have chronic lower extremity swelling. Denied any leg pain. Chest x-ray showed no acute cardiopulmonary process. CT angiogram of the chest showed bilateral pulmonary embolus findings suggestive of right ventricular strain and pulmonary artery hypertension. EKG showed sinus tachycardia. On admission patient was tachycardic and tachypneic and pulse ox 94% on room air. Blood pressure 134/83. Laboratory test showed WBC 9.9 hemoglobin 14.7 platelets 194 D-dimer 7.71 and Sodium 139 potassium 4.5 chloride 108 bicarb is 20 BUN 19 and creatinine 0.76 and blood sugar is 154 AST 100 ALT 80 and alk phos 185 and troponin 0.066 and 0.056 and 0.051 proBNP 3040 Coronavirus PCR not detected. 2D echocardiogram was completed showing EF 55% with moderate right ventricular dilation with mild right ventricular hypokinesis. Patient was monitored in the intensive care unit status post EKOS procedure which she underwent on 09/24/2021. She also has right lower extremity DVT. Patient was started on eliquis VTE protocol. She was able to be weaned off oxygen. Patient was stable for discharge and developed erythema and swelling to the left antecubital fossa from an IV site suspicious for cellulitis and infecitious disease was consulted. She was started on IV cefazolin and blood cultures were taken. They are negative at 24 hours, she received 2 days of IV cefazolin and redness and swelling have improved. Venous doppler of left upper extremity showing no DVT however this is a limited study. There is some superficial thrombus which appears to be present. She will complete antibiotic therapy with 7 days of oral keflex. 09/30/2021 Patient is sitting up in chair today. Denies chest pain, denies shortness of breath. She is now on room air. No nausea, vomiting, diarrhea reported. She is tolerating oral diet. She does have some mild peripheral edema right leg. Lungs are clear, S1 S2 auscultated. abdomen is soft and nontender. She is urinating without difficulty. She is alert and oriented x3 focal neurological exam is ne gative. Redness and swelling have improved and ID has cleared patient for discharge. Labs reviewed today showing a white count of 9.0, hgb 14.6, platelets 226. Most recent electrolyte panel showing sodium 136, potassium 4.3, BUN 14, creatinine 1.73, glucose 120, calcium 8.3, liver enzymes stable AST 41/ALT 51, alk phos 154. Procalcitonin 0.9, CRP 2.4 and 2.2. Recommend monitoring liver enzymes outpatient. Patient is afebrile, heart rate 82, blood pressure 112/76, 93% room air. Please see medication reconciliation for a list of current medication. Thank you for allowing us to participate in the care of this patient. Total time taken in discharge planning greater than 35 minutes. Patient Condition at Discharge: Stable Plan - Discharge Summary Discharge Rx Participant: No New Discharge Prescriptions: New Famotidine [Pepcid] 20 mg PO DAILY #30 tablet Cephalexin [Keflex] 500 mg PO Q6HR 7 Days #28 cap Apixaban [Eliquis Starter Pack (for VTE)] 5 - 10 mg PO DIRECTED 30 Days #1 each Continue Acetaminophen [Tylenol Arthritis] 650 mg PO Q8H PRN PRN Reason: Pain Discontinued Ibuprofen [Motrin] 800 mg PO Q8H PRN PRN Reason: Pain Diclofenac Sodium [Voltaren] 75 mg PO BID PRN PRN Reason: knee pain Discharge Medication List Acetaminophen [Tylenol Arthritis] 650 mg PO Q8H PRN 09/24/21 [History] Apixaban [Eliquis Starter Pack (for VTE)] 5 - 10 mg PO DIRECTED 30 Days #1 each 09/25/21 [Rx] Famotidine [Pepcid] 20 mg PO DAILY #30 tablet 09/29/21 [Rx] Cephalexin [Keflex] 500 mg PO Q6HR 7 Days #28 cap 09/30/21 [Rx] Follow up Appointment(s)/Referral(s): Nathanael Duran MD [STAFF PHYSICIAN] - 2 Weeks (Cardiology, the office will call you with appointment date and time. ) Dianna Galindo DO [STAFF PHYSICIAN] - As Needed (Vascular surgeon) Valorie Bertrand DO [Primary Care Provider] - 1-2 days ( ) Estefany Weber MD [STAFF PHYSICIAN] - 10/15/21 2:00 pm (Pulmonary Appointment with Donna Turner DNP) Ambulatory/Diagnostic Orders: Comprehensive Metabolic Panel [LAB.AMB] Time Frame: 3 Days, Location: None Selected Patient Instructions/Handouts: Pulmonary Embolism (DC) Activity/Diet/Wound Care/Special Instructions: Continue Eliquis 10 mg PO BID last dose 10/01/2021 9 pm Begin Eliquis 5 mg PO BID beginning 10/02/2021 9 am and continue Take Pepcid 20 mg PO daily for GI prophylaxis Complete oral Keflex 4 times a day for the next 7 days Monitor left arm redness and swelling can also use warm compress. Return to ER if redness or swelling worsens, develop fever. Recommend to see primary care in 2 to 3 days outpatient Repeat labs in 2 to 3 days Discharge Disposition: HOME SELF-CARE
== END 2021-09-30 15:57 | disposition home or self-care (01) | DRG 166 ==
LOC: EC 06:39 → 3SCARD 10:01 → 2SICU 15:09 → 3SCARD 09-25 22:39
PROVIDERS: ADMIT Internal Medicine; ATTEND Internal Medicine
PROC: 02FQ3Z0 Fragmentation of Right Pulmonary Artery, Percutaneous Approach, Ultrasonic (ICD-10-PCS; principal; 2021-09-24 13:45)
PROC: 02FR3Z0 Fragmentation of Left Pulmonary Artery, Percutaneous Approach, Ultrasonic (ICD-10-PCS; principal; 2021-09-24 13:45)
PROC: 3E03317 Introduction of Other Thrombolytic into Peripheral Vein, Percutaneous Approach (ICD-10-PCS; principal; 2021-09-24 13:45)
PROC: B31T1ZZ Fluoroscopy of Left Pulmonary Artery using Low Osmolar Contrast (ICD-10-PCS; principal; 2021-09-24 13:45)
PROC: B31S1ZZ Fluoroscopy of Right Pulmonary Artery using Low Osmolar Contrast (ICD-10-PCS; principal; 2021-09-24 13:45)
DX: I26.99 Other pulmonary embolism without acute cor pulmonale (principal); J96.01 Acute respiratory failure with hypoxia; I82.401 Acute embolism and thrombosis of unspecified deep veins of right lower extremity; Z68.43 Body mass index [BMI] 50.0-59.9, adult; I82.612 Acute embolism and thrombosis of superficial veins of left upper extremity; L03.114 Cellulitis of left upper limb; I27.21 Secondary pulmonary arterial hypertension; E66.01 Morbid (severe) obesity due to excess calories; Z20.822 Contact with and (suspected) exposure to COVID-19; Z28.310 Unvaccinated for COVID-19; R73.9 Hyperglycemia, unspecified; M17.0 Bilateral primary osteoarthritis of knee; K21.9 Gastro-esophageal reflux disease without esophagitis; G47.33 Obstructive sleep apnea (adult) (pediatric); R77.8 Other specified abnormalities of plasma proteins; R74.01 Elevation of levels of liver transaminase levels; Z79.899 Other long term (current) drug therapy; Z86.16 Personal history of COVID-19; Z87.440 Personal history of urinary (tract) infections; Z87.891 Personal history of nicotine dependence; Z87.01 Personal history of pneumonia (recurrent); Z82.49 Family history of ischemic heart disease and other diseases of the circulatory system; Z83.49 Family history of other endocrine, nutritional and metabolic diseases
CPT/HCPCS: 36415; 37211; 71046; 71275; 80048; 80053; 83735; 83880; 84145; 84484; 84703; 85025; 85379; 85384; 85610; 85730; 86140; 87040; 87502; 87635; 93005; 93306; 93970; 96374; 99291

== ENCOUNTER → 2022-11-16 | Outpatient (CLI) | payer BC ==
--- NOTE | 2022-11-16 14:17 | US ---
EXAMINATION TYPE: US venous doppler duplex LE RT DATE OF EXAM: 11/16/2022 2:00 PM COMPARISON: US 09/24/2021 CLINICAL INDICATION: Female, 52 years old with history of I82.5Z9 EMBOLISM; H/O DVT right leg with PE , pt currently on blood thinners SIDE PERFORMED: Right TECHNIQUE: The lower extremity deep venous system is examined utilizing real time linear array sonog catrachita with graded compression, doppler sonography and color-flow sonography. VESSELS IMAGED: Common Femoral Vein Deep Femoral Vein Greater Saphenous Vein * Femoral Vein Popliteal Vein Small Saphenous Vein * Proximal Calf Veins (* superficial vessels) Grayscale, color doppler, spectral doppler imaging performed of the deep veins of the right lower ext remity. There is normal flow, compressibility, vascular waveforms. Right Leg: Negative for DVT IMPRESSION: No deep venous thrombosis of the right lower extremity.
== END | disposition home or self-care (01) ==
LOC: RADUSWWP 13:33
PROVIDERS: ATTEND Internal Medicine Hematology & Oncology
DX: I82.5Z1 Chronic embolism and thrombosis of unspecified deep veins of right distal lower extremity (principal)